=== PATIENT | male | born 1935 | race American Indian/Alaskan Native ===

== ENCOUNTER 2016-11-10 12:31 | Emergency (ER) | payer MEDICARE ==
--- NOTE | 2016-11-10 13:24 | Emergency Department Report ---
HPI - General Chief Complaint: Tube Replacement Time Seen by Provider: 11/10/16 13:04 - HPI HPI: 81-year-old Afro[place] male who presents to the emergency department by EMS from home with complaint of a PEG tube being pulled out accidentally. The patient has some home health care help who was trying to clean him up today and accidentally pulled out the tube. There was some bleeding at the PEG tube site that has stopped since and is covered with some gauze. Patient denies any significant abdominal discomfort. ED Past Medical Hx - Past Medical History Previous Medical History?: Yes Hx Hypertension: Yes Hx CVA: Yes (pt had stroke 20 years ago) Hx Diabetes: No Hx Liver Disease: (Abnormal LFTs) Hx Sickle Cell Disease: No Hx Arthritis: Yes Hx Tuberculosis: Yes Hx Dementia: Yes Hx HIV: No Additional medical history: GOUT. ALZHEIMERS? - Surgical History Past Surgical History?: Yes Hx Pacemaker: Yes - Social History Smoking Status: Never Smoker Substance Use Type: None - Medications Home Medications: Home Medications Medication Instructions Recorded Confirmed Last Taken Type Simvastatin 20 mg PO QHS 01/18/15 03/30/16 03/30/16 History Clopidogrel [Plavix] 75 mg PO QDAY tablet 11/30/15 03/30/16 03/30/16 Rx Metoprolol [Lopressor TAB] 50 mg PO DAILY #30 tablet 11/30/15 03/30/16 03/30/16 Rx Pantoprazole [Protonix TAB] 40 mg PO QDAY #30 tablet 11/30/15 03/30/16 03/30/16 Rx ED Review of Systems ROS: Stated complaint: FEEDING TUBE OUT Other details as noted in HPI Comment: All other systems reviewed and negative Constitutional: denies: chills, fever Eyes: denies: eye pain, eye discharge, vision change ENT: denies: ear pain, throat pain Respiratory: denies: cough, shortness of breath, wheezing Cardiovascular: denies: chest pain, palpitations Gastrointestinal: denies: nausea, vomiting Genitourinary: denies: urgency, dysuria Musculoskeletal: denies: back pain, joint swelling, arthralgia Skin: denies: rash, lesions Neurological: denies: headache, weakness, paresthesias Physical Exam - Physical Exam Vital Signs: Vital Signs 11/10/16 12:52 Temperature 97.9 F Pulse Rate 67 Respiratory 16 Rate Blood Pressure 138/69 [Right] O2 Sat by Pulse 99 Oximetry Physical Exam: GENERAL: The patient is well-developed well-nourished. HEENT: Normocephalic. Atraumatic. Extraocular motions are intact. Patient has moist mucous membranes. Pupils equal reactive to light bilaterally. NECK: Supple. Trachea is midline. CHEST/LUNGS: Clear to auscultation. There is no respiratory distress noted. HEART/CARDIOVASCULAR: Regular. There is no tachycardia. There is no gallop rub or murmur. ABDOMEN: Abdomen is soft. Nontender abdomen. There is a small wound from previous PEG tube site. It does not appear infected and there is no current bleeding. Patient has normal bowel sounds. There is no abdominal distention. SKIN: Skin is warm and dry. NEURO: The patient is awake, and cooperative. The patient has no focal neurologic deficits. MUSCULOSKELETAL: There is no tenderness or deformity. There is no limitation range of motion. There is no evidence of acute injury. ED Course Vital Signs 11/10/16 12:52 Temperature 97.9 F Pulse Rate 67 Respiratory 16 Rate Blood Pressure 138/69 [Right] O2 Sat by Pulse 99 Oximetry - Feeding Tube Replacement Reason for Replacement: pt. removed/pulled out Initial Tube Inserted: greater than 4 weeks Type of Tube: gastrostomy Use of Tube: medications and feeding Insertion Site Prior to Procedure: clean Tube Used for Reinsertion: GINA Dutch Tube Size (F): 20 Balloon Size (mls): 10 Verification of Placement: gastrograffin injection Tube Secured by: tape/dressing Patient Tolerated Procedure: well ED Medical Decision Making - Radiology Data Radiology results: image reviewed interpreted by me: X-ray G-tube study does not show any extravasation and there appears to be appropriate placement in the stomach. - Medical Decision Making 81-year-old male presents to the emergency department after his PEG tube was actually pulled out earlier today by home health. There is no significant bleeding, swelling or abnormalities seen to the PEG tube site. A another 20 Dutch GINA tube was used and there was easy insertion into the stomach. The bulb was filled up to about 10 mL. The patient had a G-tube study that does not show any extravasation and the contrast appears to be flowing into the stomach so it is in appropriate position. Vital signs stable. Patient will be transported back home. - Differential Diagnosis G-tube malfunction, ostomy narrowing, perforation Critical Care Time: No Critical care attestation.: If time is entered above; I have spent that time in minutes in the direct care of this critically ill patient, excluding procedure time. ED Disposition Clinical Impression: PEG tube malfunction Disposition: DISCHARGED TO HOME OR SELFCARE Is pt being admited?: No Condition: Stable Instructions: How to Use and Care for Your PEG Tube (ED) Additional Instructions: Please follow-up with a primary care doctor as needed. Return to the emergency department with any further malfunction of the PEG tube or any acute distress. Referrals: PRIMARY CARE, [Primary Care Provider] - 3-5 Days Time of Disposition: 14:24
--- NOTE | 2016-11-10 14:18 | XRay Report ---
G-TUBE STUDY History: G-tube replacement. Findings: R&D Lab Technician film of the abdomen and AP view of the abdomen following oral contrast through the PEG tube was obtained. The PEG tube terminates in the stomach. There is no evidence for extravasation or obstruction. Impression: Unremarkable PEG tube.
[2016-11-10 15:47] VITALS: BP 119/66
== END 2016-11-10 16:07 | disposition home or self-care (01) ==
LOC: ED 12:31
DX: K94.23 Gastrostomy malfunction (principal); I10 Essential (primary) hypertension; Z86.73 Personal history of transient ischemic attack (TIA), and cerebral infarction without residual deficits; M19.90 Unspecified osteoarthritis, unspecified site; F03.90 Unspecified dementia, unspecified severity, without behavioral disturbance, psychotic disturbance, mood disturbance, and anxiety; Z95.818 Presence of other cardiac implants and grafts
CPT/HCPCS: 74000; Q9963

== ENCOUNTER 2017-11-26 23:04 | Emergency (ER) | payer MEDICARE ==
--- NOTE | 2017-11-26 23:42 | Emergency Department Report ---
ED General Adult HPI - General Chief complaint: Tube Replacement Stated complaint: DISLODGED FEEDING TUBE Time Seen by Provider: 11/26/17 23:32 Source: patient, family, EMS (ems notes not available at time of chart dictation), RN notes reviewed, old records reviewed Mode of arrival: Stretcher Limitations: Physical Limitation, Other (patient is a poor historian. Patient has contractures.) - History of Present Illness Initial comments: This is an 82-year-old male who was previously unknown to this provider who is brought to the hospital by EMS and family for evaluation of accidentally dislodged feeding tube. Family indicates patient at baseline and they have no complaints. family specifically indicate that there is no fevers, chills, lethargy, cough, nausea or vomiting. The patient endorses no complaints. -: This afternoon Severity scale (0 -10): 0 Consistency: constant Improves with: none Worsens with: none Associated Symptoms: denies other symptoms - Related Data Home Medications Medication Instructions Recorded Confirmed Last Taken Simvastatin 20 mg PO QHS 01/18/15 11/26/17 03/30/16 oxyCODONE /ACETAMINOPHEN 5 - 325 mg PO Q6H PRN 11/10/16 11/26/17 Unknown Previous Rx's Medication Instructions Recorded Last Taken Type Clopidogrel [Plavix] 75 mg PO QDAY tablet 11/30/15 03/30/16 Rx Metoprolol [Lopressor TAB] 50 mg PO DAILY #30 tablet 11/30/15 03/30/16 Rx Pantoprazole [Protonix TAB] 40 mg PO QDAY #30 tablet 11/30/15 03/30/16 Rx Allergies Allergy/AdvReac Type Severity Reaction Status Date / Time No Known Allergies Allergy Verified 04/07/15 18:20 ED Review of Systems ROS: Stated complaint: DISLODGED FEEDING TUBE Other details as noted in HPI Comment: All other systems reviewed and negative Constitutional: denies: fever Eyes: denies: vision change Respiratory: denies: cough Cardiovascular: denies: chest pain Gastrointestinal: denies: abdominal pain Genitourinary: denies: dysuria Musculoskeletal: denies: arthralgia Neurological: denies: confusion ED Past Medical Hx - Past Medical History Hx Hypertension: Yes Hx CVA: Yes (pt had stroke 20 years ago) Hx Diabetes: No Hx Liver Disease: (Abnormal LFTs) Hx Sickle Cell Disease: No Hx Arthritis: Yes Hx Tuberculosis: Yes Hx Dementia: Yes Hx HIV: No Additional medical history: GOUT. ALZHEIMERS? - Surgical History Hx Pacemaker: Yes - Social History Smoking Status: Never Smoker Substance Use Type: None - Medications Home Medications: Home Medications Medication Instructions Recorded Confirmed Last Taken Type Simvastatin 20 mg PO QHS 01/18/15 11/26/17 03/30/16 History Clopidogrel [Plavix] 75 mg PO QDAY tablet 11/30/15 11/26/17 03/30/16 Rx Metoprolol [Lopressor TAB] 50 mg PO DAILY #30 tablet 11/30/15 11/26/17 03/30/16 Rx Pantoprazole [Protonix TAB] 40 mg PO QDAY #30 tablet 11/30/15 11/26/17 03/30/16 Rx oxyCODONE /ACETAMINOPHEN 5 - 325 mg PO Q6H PRN 11/10/16 11/26/17 Unknown History ED Physical Exam - General Limitations: Physical Limitation, Other General appearance: alert, in no apparent distress - Head Head exam: Present: atraumatic, normocephalic - Eye Eye exam: Present: normal appearance - ENT ENT exam: Present: mucous membranes moist - Neck Neck exam: Present: normal inspection - Respiratory Respiratory exam: Present: normal lung sounds bilaterally. Absent: respiratory distress - Cardiovascular Cardiovascular Exam: Present: normal rhythm, bradycardia, normal heart sounds. Absent: systolic murmur, diastolic murmur, rubs, gallop - GI/Abdominal GI/Abdominal exam: Present: soft, normal bowel sounds, other (there is a left lower quadrant ostomy noted, with no redness, pus, streaking or tenderness.). Absent: distended, tenderness, guarding, rebound, rigid, pulsatile mass - Rectal Rectal exam: Present: deferred - Extremities Exam Extremities exam: Present: normal inspection, other (bilateral upper and lower extremities are moving, lower extremities are contracted). Absent: calf tenderness - Back Exam Back exam: Present: normal inspection. Absent: paraspinal tenderness, vertebral tenderness - Neurological Exam Neurological exam: Present: alert, other (follow some commands. No facial droop. Sensation intact to light touch in the bilateral upper and lower extremities) - Psychiatric Psychiatric exam: Present: normal affect, normal mood - Skin Skin exam: Present: warm, dry, intact, normal color. Absent: rash ED Course Vital Signs 11/26/17 11/26/17 23:12 23:55 Temperature 99.0 F Pulse Rate 50 L Respiratory 15 16 Rate Blood Pressure 174/61 Blood Pressure 174/61 [Left] O2 Sat by Pulse 99 Oximetry - Reevaluation(s) Reevaluation #1: 11/27/17 01:01 Differential diagnosis, including but not limited to: Feeding tube replacement Assessment and plan: 82-year-old male status post G-tube placement by myself. He is afebrile with reassuring vital signs, and his family indicates that he is at his baseline. Post procedure x-ray demonstrated appropriate placement of the tube. Multiple incidental findings noted, however the clinical history and exam are otherwise unremarkable. Patient can follow-up in outpatient primary care doctor. Return precautions are reviewed, the tube is suitable to use for feedings and medication administration at this time. - Procedure Description Procedures done: A 20 Lao feeding tube was inserted into the left lower quadrant ostomy with 1 attempt and no difficulty. The balloon was inflated with 10 mL of sterile saline. Post procedure x-ray demonstrated appropriate contrast placement. ED Medical Decision Making - Lab Data Vital Signs 11/26/17 11/26/17 23:12 23:55 Temperature 99.0 F Pulse Rate 50 L Respiratory 15 16 Rate Blood Pressure 174/61 Blood Pressure 174/61 [Left] O2 Sat by Pulse 99 Oximetry - Radiology Data Radiology results: report reviewed, image reviewed X-ray of gastrostomy tube demonstrates appropriate placement of tube with contrast in the appropriate bowel lumen. Multiple other incidental findings noted. Critical care attestation.: If time is entered above; I have spent that time in minutes in the direct care of this critically ill patient, excluding procedure time. ED Disposition Clinical Impression: Encounter for feeding tube placement Disposition: DC-01 TO HOME OR SELFCARE Is pt being admited?: No Does the pt Need Aspirin: No Condition: Stable Instructions: Tube Feeding (ED) Additional Instructions: Tube may be used for feeds and for medications. Follow-up with primary care doctor or route delivery manager within the next month. Return to the ER right away with fevers, chills, lethargy, irritability, projectile vomiting, change in mental status, confusion, inability to tolerate liquid feeds. Referrals: PRIMARY CARE, [Primary Care Provider] - 3-5 Days MAXI WALLACE MD [Staff Physician] - 3-5 Days TREVIZO,RAFIQ A, MD [Staff Physician] - 3-5 Days
--- NOTE | 2017-11-27 00:29 | XRay Report ---
FINAL REPORT PROCEDURE: XR G-TUBE STUDY TECHNIQUE: AP supine portable radiographs of the abdomen were obtained at 11/27/2017 03:59 (T). Images pre and post Gastrografin via G-tube. HISTORY: G-tube replacement. COMPARISON: Radiographs dated 03/30/2016. FINDINGS: Bowel gas pattern: Diffusely air-filled bowel, predominantly colon. Moderate stool throughout the colon. Masses or calcifications: Pelvic phleboliths. Bony structures: Osteopenia. Degenerative changes of the spine. Mild narrowing of the bilateral hip joints. Other: Incompletely visualized pacer/ICD. G-tube in place. After the administration of contrast via G-tube contrast seen in the stomach and proximal small bowel IMPRESSION: Limited evaluation, contrast seen in the stomach and proximal small bowel when administered via G-tube without obvious extravasation, recommend confirmation under real-time imaging under fluoroscopy if there is continued clinical concern. Diffusely air-filled bowel. Moderate stool throughout the colon. Consider ileus and/or constipation.
[2017-11-27 01:13] VITALS: BP 120/66
== END 2017-11-27 02:25 | disposition home or self-care (01) ==
LOC: ED 23:04
DX: K94.29 Other complications of gastrostomy (principal); I10 Essential (primary) hypertension; F03.90 Unspecified dementia, unspecified severity, without behavioral disturbance, psychotic disturbance, mood disturbance, and anxiety; Z86.73 Personal history of transient ischemic attack (TIA), and cerebral infarction without residual deficits
CPT/HCPCS: 43760; 74018; 99283; Q9963

== ENCOUNTER 2018-04-05 22:51 | Emergency (ER) | payer MEDICARE ==
[2018-04-05 23:28] VITALS: BP 103/50
--- NOTE | 2018-04-05 23:48 | Emergency Department Report ---
ED General Adult HPI - General Chief complaint: Tube Replacement Stated complaint: FEEDING TUBE FELL OUT Time Seen by Provider: 04/05/18 23:20 Source: patient Mode of arrival: Stretcher Limitations: Altered Mental Status, Physical Limitation - History of Present Illness Initial comments: 82-year-old male brought to ER for replacement of PEG tube. states she was about to feed the patient and PEG tube fell out less than an hour ago. -: minutes(s) (45) Location: abdomen Severity scale (0 -10): 1 Improves with: none Worsens with: none Associated Symptoms: denies other symptoms - Related Data Home Medications Medication Instructions Recorded Confirmed Last Taken Simvastatin 20 mg PO QHS 01/18/15 11/26/17 03/30/16 oxyCODONE /ACETAMINOPHEN 5 - 325 mg PO Q6H PRN 11/10/16 11/26/17 Unknown Previous Rx's Medication Instructions Recorded Last Taken Type Clopidogrel [Plavix] 75 mg PO QDAY tablet 11/30/15 03/30/16 Rx Metoprolol [Lopressor TAB] 50 mg PO DAILY #30 tablet 11/30/15 03/30/16 Rx Pantoprazole [Protonix TAB] 40 mg PO QDAY #30 tablet 11/30/15 03/30/16 Rx Allergies Allergy/AdvReac Type Severity Reaction Status Date / Time No Known Allergies Allergy Verified 04/07/15 18:20 ED Review of Systems ROS: Stated complaint: FEEDING TUBE FELL OUT Other details as noted in HPI Comment: All other systems reviewed and negative Gastrointestinal: as per HPI ED Past Medical Hx - Past Medical History Hx Hypertension: Yes Hx CVA: Yes (pt had stroke 20 years ago) Hx Diabetes: No Hx Liver Disease: (Abnormal LFTs) Hx Sickle Cell Disease: No Hx Arthritis: Yes Hx Tuberculosis: Yes Hx Dementia: Yes Hx HIV: No Additional medical history: GOUT. ALZHEIMERS? - Surgical History Hx Pacemaker: Yes - Social History Smoking Status: Never Smoker Substance Use Type: None - Medications Home Medications: Home Medications Medication Instructions Recorded Confirmed Last Taken Type Simvastatin 20 mg PO QHS 01/18/15 11/26/17 03/30/16 History Clopidogrel [Plavix] 75 mg PO QDAY tablet 11/30/15 11/26/17 03/30/16 Rx Metoprolol [Lopressor TAB] 50 mg PO DAILY #30 tablet 11/30/15 11/26/1703/30/16 Rx Pantoprazole [Protonix TAB] 40 mg PO QDAY #30 tablet 11/30/15 11/26/17 03/30/16 Rx oxyCODONE /ACETAMINOPHEN 5 - 325 mg PO Q6H PRN 11/10/16 11/26/17 Unknown History ED Physical Exam - General Limitations: Altered Mental Status, Physical Limitation General appearance: alert, in no apparent distress - Head Head exam: Present: atraumatic, normocephalic - Neck Neck exam: Present: normal inspection - Respiratory Respiratory exam: Present: normal lung sounds bilaterally. Absent: respiratory distress - Cardiovascular Cardiovascular Exam: Present: regular rate, bradycardia - GI/Abdominal GI/Abdominal exam: Present: soft, other (PEG tube site appears clean, no erythema or purulence present). Absent: distended, tenderness - Extremities Exam Extremities exam: Present: other (lower extremitis contracted) - Neurological Exam Neurological exam: Present: alert, other (nonverbal) - Psychiatric Psychiatric exam: Present: normal affect, normal mood - Skin Skin exam: Present: warm, dry, intact ED Course Vital Signs 04/05/18 04/06/18 23:19 01:24 Temperature 98.7 F 98.7 F Pulse Rate 51 L 51 L Respiratory 18 Rate Blood Pressure 103/50 O2 Sat by Pulse 100 100 Oximetry - Feeding Tube Replacement Initial Tube Inserted: greater than 4 weeks Type of Tube: gastrostomy Use of Tube: medications and feeding Insertion Site Prior to Procedure: clean Tube Used for Reinsertion: other (PEG) Ecuadorean Tube Size (F): 20 Balloon Size (mls): 10 Verification of Placement: KUB, gastrograffin injection Tube Secured by: G-tube attachment device Patient Tolerated Procedure: well ED Medical Decision Making - Medical Decision Making 82-year-old male here with PEG tube dislodgment. PEG tube was replaced. KUB with Gastrografin shows correct placement of tube. Will d/c home. - Differential Diagnosis PEG tube replacement Critical care attestation.: If time is entered above; I have spent that time in minutes in the direct care of this critically ill patient, excluding procedure time. ED Disposition Clinical Impression: PEG (percutaneous endoscopic gastrostomy) adjustment/replacement/removal Disposition: TO HOME OR SELFCARE Is pt being admited?: No Condition: Stable Instructions: How to Use and Care for Your PEG Tube (ED) Referrals: PRIMARY CARE, [Primary Care Provider] - 3-5 Days Time of Disposition: 00:24
--- NOTE | 2018-04-06 00:19 | XRay Report ---
FINAL REPORT EXAM: XR G-TUBE STUDY HISTORY: PEG tube replacement TECHNIQUE: Two supine views of the abdomen were obtained, the 2nd following the injection of oral contrast through the gastrostomy tube. FINDINGS: There is normal opacification of the stomach. There is no evidence of extravasation of contrast. The bowel gas pattern otherwise reveals a large amount retained feces in the colon. IMPRESSION: Gastrostomy tube in proper position. No evidence of extravasation of contrast.
== END 2018-04-06 01:33 | disposition home or self-care (01) ==
LOC: ED 22:51
DX: K94.23 Gastrostomy malfunction (principal)
CPT/HCPCS: 43760; 74018; 99283; Q9967

== ENCOUNTER 2018-04-07 20:22 | Emergency (ER) | payer MEDICARE ==
--- NOTE | 2018-04-07 21:02 | Emergency Department Report ---
ED General Adult HPI - General Chief complaint: Tube Replacement Stated complaint: REPLACE FEEDING TUBE Time Seen by Provider: 04/07/18 20:47 Source: family, EMS (ems notes not available at time of chart dictation), RN notes reviewed, old records reviewed Mode of arrival: Stretcher Limitations: Altered Mental Status, Physical Limitation - History of Present Illness Initial comments: This is an 82-year-old gentleman who I have evaluated in the past. He is accompanied by his family member. She has brought the patient to the emergency room for a feeding tube replacement. She reports the patient accidentally pulled out his feeding tube today. No other complaints. -: This morning Consistency: constant Improves with: none Worsens with: none Associated Symptoms: denies: cough, fever/chills, loss of appetite, nausea/ vomiting, seizure, shortness of breath, syncope, weakness - Related Data Home Medications Medication Instructions Recorded Confirmed Last Taken Simvastatin 20 mg PO QHS 01/18/15 11/26/17 03/30/16 oxyCODONE /ACETAMINOPHEN 5 - 325 mg PO Q6H PRN 11/10/16 11/26/17 Unknown Previous Rx's Medication Instructions Recorded Last Taken Type Clopidogrel [Plavix] 75 mg PO QDAY tablet 11/30/15 03/30/16 Rx Metoprolol [Lopressor TAB] 50 mg PO DAILY #30 tablet 11/30/15 03/30/16 Rx Pantoprazole [Protonix TAB] 40 mg PO QDAY #30 tablet 11/30/15 03/30/16 Rx Allergies Allergy/AdvReac Type Severity Reaction Status Date / Time No Known Allergies Allergy Verified 04/07/15 18:20 ED Review of Systems ROS: Stated complaint: REPLACE FEEDING TUBE Other details as noted in HPI Constitutional: denies: fever Eyes: denies: eye discharge ENT: denies: epistaxis Respiratory: denies: cough Cardiovascular: denies: syncope Gastrointestinal: denies: vomiting Genitourinary: denies: frequency Skin: denies: rash ED Past Medical Hx - Past Medical History Hx Hypertension: Yes Hx CVA: Yes (pt had stroke 20 years ago) Hx Diabetes: No Hx Liver Disease: (Abnormal LFTs) Hx Sickle Cell Disease: No Hx Arthritis: Yes Hx Tuberculosis: Yes Hx Dementia: Yes Hx HIV: No Additional medical history: GOUT. ALZHEIMERS? - Surgical History Hx Pacemaker: Yes - Social History Smoking Status: Never Smoker Substance Use Type: None - Medications Home Medications: Home Medications Medication Instructions Recorded Confirmed Last Taken Type Simvastatin 20 mg PO QHS 01/18/15 11/26/17 03/30/16 History Clopidogrel [Plavix] 75 mg PO QDAY tablet 11/30/15 11/26/17 03/30/16 Rx Metoprolol [Lopressor TAB] 50 mg PO DAILY #30 tablet 11/30/15 11/26/17 03/30/16 Rx Pantoprazole [Protonix TAB] 40 mg PO QDAY #30 tablet 11/30/15 11/26/17 03/30/16 Rx oxyCODONE /ACETAMINOPHEN 5 - 325 mg PO Q6H PRN 11/10/16 11/26/17 Unknown History ED Physical Exam - General Limitations: Altered Mental Status, Physical Limitation General appearance: in no apparent distress - Eye Eye exam: Present: normal appearance - ENT ENT exam: Present: normal orophraynx, other - Neck Neck exam: Present: normal inspection, full ROM. Absent: tenderness, meningismus - Respiratory Respiratory exam: Present: normal lung sounds bilaterally. Absent: respiratory distress, wheezes, rales, rhonchi, stridor, chest wall tenderness, accessory muscle use, decreased breath sounds - Cardiovascular Cardiovascular Exam: Present: normal rhythm, bradycardia, normal heart sounds - GI/Abdominal GI/Abdominal exam: Present: soft, other (There is left lower quadrant ostomy noted, with no redness, pus or streaking). Absent: distended, tenderness, guarding, rebound, rigid, pulsatile mass - Extremities Exam Extremities exam: Present: normal inspection, other (contractures noted in the bilateral lower extremities.) - Back Exam Back exam: Present: normal inspection. Absent: tenderness, CVA tenderness (R), paraspinal tenderness, vertebral tenderness - Neurological Exam Neurological exam: Present: alert (patient is awake. He follows some commands. Chronic weakness in the lower extremities.) - Psychiatric Psychiatric exam: Present: normal affect ED Course Vital Signs 04/07/18 04/07/18 04/07/18 20:37 20:42 20:46 Temperature 98.4 F Pulse Rate 53 L 57 L Respiratory 16 14 Rate Blood Pressure 143/58 122/49 O2 Sat by Pulse 100 99 99 Oximetry 09/19/18 09/19/18 09/19/18 21:00 21:16 21:30 Temperature Pulse Rate 60 55 L 47 L Respiratory 13 13 16 Rate Blood Pressure 122/49 125/81 127/43 O2 Sat by Pulse 93 98 Oximetry 04/07/18 21:46 Temperature Pulse Rate 47 L Respiratory 18 Rate Blood Pressure 123/48 O2 Sat by Pulse 99 Oximetry - Reevaluation(s) Reevaluation #1: 04/07/18 22:48 Postprocedure x-ray shows proper placement of the G-tube. Patient in no distress. Patient will be discharged. - Procedure Description Procedures done: Left lower quadrant is cleansed in typical aseptic technique. A 20 Filip[place] feeding tube was attempted to be placed, but it would not pass. A 16 Filip[place] feeding tube was then placed, successfully, and balloon was instilled with 5 mL of sterile saline. Patient tolerated procedure well. ED Medical Decision Making - Medical Decision Making Vital Signs 04/07/18 20:42 Temperature 98.4 F Pulse Rate 53 L Respiratory 16 Rate Blood Pressure 143/58 O2 Sat by Pulse 99 Oximetry Differential diagnosis, including but not limited to feeding tube replacement Assessment and plan: 82-year-old gentleman status post feeding tube replacement with a 16 Filip[place] feeding tube. Patient can follow up with outpatient GI to have the tube up dilated. Critical care attestation.: If time is entered above; I have spent that time in minutes in the direct care of this critically ill patient, excluding procedure time. ED Disposition Clinical Impression: PEG (percutaneous endoscopic gastrostomy) adjustment/replacement/removal Disposition: DC-01 TO HOME OR SELFCARE Is pt being admited?: No Does the pt Need Aspirin: No Condition: Good Additional Instructions: Continue current outpatient medications. Feeding tube that was placed today is slightly smaller than recently placed feeding tubes. Patient should follow up with outpatient gastroenterology within the next 2 weeks for evaluation to have the tube up dilated. Please return to the ER right away with fevers, chills, lethargy, irritability, projectile vomiting, change of mental status, confusion , inability to tolerate liquid feeds. Referrals: [facility] [Provider Group] - 3-5 Days
--- NOTE | 2018-04-07 22:41 | XRay Report ---
FINAL REPORT PROCEDURE: XR G-TUBE STUDY TECHNIQUE: AP supine portable radiograph of the abdomen was obtained at 04/07/2018 22:05 (EST) . HISTORY: s/p replacement COMPARISON: No prior studies are available for comparison. FINDINGS: There is a percutaneous gastrostomy tube. Contrast is injected. The tube is intact and in proper position. There is no leakage. There is barium in the bowel. There is no bowel obstruction. There is no free air. IMPRESSION: NG tube is intact and in proper position.
[2018-04-08 06:04] VITALS: BP 143/57
== END 2018-04-08 | disposition home or self-care (01) ==
LOC: ED 20:22
DX: K94.29 Other complications of gastrostomy (principal); I10 Essential (primary) hypertension; Z86.73 Personal history of transient ischemic attack (TIA), and cerebral infarction without residual deficits; M19.90 Unspecified osteoarthritis, unspecified site; F03.90 Unspecified dementia, unspecified severity, without behavioral disturbance, psychotic disturbance, mood disturbance, and anxiety; A15.9 Respiratory tuberculosis unspecified; M10.9 Gout, unspecified; Z95.818 Presence of other cardiac implants and grafts
CPT/HCPCS: 43760; 74018; 99283; Q9967

== ENCOUNTER 2018-09-13 13:06 | Emergency (ER) | payer MEDICARE ==
--- NOTE | 2018-09-13 13:42 | Emergency Department Report ---
ED General Adult HPI - General Chief complaint: Tube Replacement Stated complaint: FEEDING TUBE REPLACEMENT Time Seen by Provider: 09/13/18 13:15 Source: family, EMS Mode of arrival: Stretcher Limitations: No Limitations - History of Present Illness Initial comments: Mr. Glasgow is an 82 yo who was brought by daughter for feeding tube replacement. She has the tube changed every 4-6 months. No other concerns. Mr. Glasgow is in hospice care. Due to dementia, patient is unable to give a history. No other pain. No other concern. Severity scale (0 -10): 0 - Related Data Home Medications Medication Instructions Recorded Confirmed Last Taken Simvastatin 20 mg PO QHS 01/18/15 11/26/17 03/30/16 oxyCODONE /ACETAMINOPHEN 5 - 325 mg PO Q6H PRN 11/10/16 11/26/17 Unknown Previous Rx's Medication Instructions Recorded Last Taken Type Clopidogrel [Plavix] 75 mg PO QDAY tablet 11/30/15 03/30/16 Rx Metoprolol [Lopressor TAB] 50 mg PO DAILY #30 tablet 11/30/15 03/30/16 Rx Pantoprazole [Protonix TAB] 40 mg PO QDAY #30 tablet 11/30/15 03/30/16 Rx Allergies Allergy/AdvReac Type Severity Reaction Status Date / Time No Known Allergies Allergy Verified 04/07/15 18:20 ED Review of Systems ROS: Stated complaint: FEEDING TUBE REPLACEMENT Other details as noted in HPI Comment: Unobtainable due to pts medical conditions ED Past Medical Hx - Past Medical History Previous Medical History?: Yes Hx Hypertension: Yes Hx CVA: Yes (pt had stroke 20 years ago) Hx Diabetes: No Hx Liver Disease: (Abnormal LFTs) Hx Sickle Cell Disease: No Hx Arthritis: Yes Hx Tuberculosis: Yes Hx Dementia: Yes Hx HIV: No Additional medical history: GOUT. ALZHEIMERS/DEMENTIA - Surgical History Hx Pacemaker: Yes Additional Surgical History: G Tube - Social History Smoking Status: Never Smoker Substance Use Type: None - Medications Home Medications: Home Medications Medication Instructions Recorded Confirmed Last Taken Type Simvastatin 20 mg PO QHS 01/18/15 11/26/17 03/30/16 History Clopidogrel [Plavix] 75 mg PO QDAY tablet 11/30/15 11/26/17 03/30/16 Rx Metoprolol [Lopressor TAB] 50 mg PO DAILY #30 tablet 11/30/15 11/26/17 03/30/16 Rx Pantoprazole [Protonix TAB] 40 mg PO QDAY #30 tablet 11/30/15 11/26/17 03/30/16 Rx oxyCODONE /ACETAMINOPHEN 5 - 325 mg PO Q6H PRN 11/10/16 11/26/17 Unknown History ED Physical Exam - General Limitations: No Limitations General appearance: alert, in no apparent distress, cachectic, other (contracted extremities, appears frail) - Head Head exam: Present: atraumatic, normocephalic - ENT ENT exam: Present: mucous membranes moist - Neck Neck exam: Present: normal inspection - Respiratory Respiratory exam: Absent: respiratory distress - GI/Abdominal GI/Abdominal exam: Present: soft, other (16 Fr gastric tube in place with clean bandage). Absent: distended, tenderness, guarding, rebound - Psychiatric Psychiatric exam: Present: flat affect - Skin Skin exam: Present: warm, dry, intact, normal color ED Course Vital Signs 09/13/18 13:08 Temperature 98.3 F Pulse Rate 60 Respiratory 16 Rate Blood Pressure 110/42 O2 Sat by Pulse 99 Oximetry - Procedure Description Procedures done: G tube replacement. I deflated the balloon of existing tube by removing 3 ml of fluid with syringe. I was able to remove tube. Using sterile technique, I was able to easily insert 16 Fr gastric tube. I inflated ballon with normal saline. G tube XR study showed tube to be in appropriate position ED Medical Decision Making - Radiology Data Radiology results: image reviewed interpreted by me: G tube in appropriate position Critical care attestation.: If time is entered above; I have spent that time in minutes in the direct care of this critically ill patient, excluding procedure time. ED Disposition Clinical Impression: Encounter for feeding tube placement Disposition: DC-01 TO HOME OR SELFCARE Is pt being admited?: No Does the pt Need Aspirin: No Condition: Stable Instructions: Tube Feeding (ED)
--- NOTE | 2018-09-13 16:58 | XRay Report ---
FINAL REPORT EXAM: XR G-TUBE STUDY HISTORY: feeding tube replacement TECHNIQUE: Frontal views of the abdomen and pelvis before and after injection of GI contrast through the percutaneous gastrostomy tube. Comparison: X-ray abdomen dated April 07, 2018 FINDINGS: A percutaneous gastrostomy tube is demonstrated with the tip projected in the region of the stomach. GI contrast is demonstrated in the stomach and duodenum. There is no evidence of extravasation of GI contrast. The bowel gas pattern is nonobstructive. There is no definite evidence of pneumoperitoneum IMPRESSION: 1. Percutaneous gastrostomy tube projected to be in satisfactory position with GI contrast demonstrat ed in the stomach and duodenum following injection of contrast into the gastrostomy tube.
[2018-09-13 17:21] VITALS: BP 125/68
== END 2018-09-13 17:20 | disposition home or self-care (01) ==
LOC: ED 13:06
DX: M10.9 Gout, unspecified (principal); I10 Essential (primary) hypertension; G30.9 Alzheimer's disease, unspecified; F02.80 Dementia in other diseases classified elsewhere, unspecified severity, without behavioral disturbance, psychotic disturbance, mood disturbance, and anxiety; Z86.73 Personal history of transient ischemic attack (TIA), and cerebral infarction without residual deficits
CPT/HCPCS: 43762; 74018; 99283; Q9967

== ENCOUNTER 2018-12-22 16:22 | Emergency (ER) | payer MEDICARE ==
--- NOTE | 2018-12-22 17:04 | Emergency Department Report ---
ED General Adult HPI - General Stated complaint: G TUBE REPLACEMENT Time Seen by Provider: 12/22/18 16:45 Source: family, EMS Mode of arrival: Stretcher Limitations: Altered Mental Status, Physical Limitation - History of Present Illness Initial comments: Patient is an 83-year-old male that presents emergency room for replacement of his G-tube. Patient's family is at bedside for history. Patient is currently on hospice for advanced dementia. Family states that the patient comes to the emergency room every 4-6 months to have his G-tube changed. Family states that the G-tube is leaking from the side. Family states the patient has not had any signs of pain or discomfort. Family denies fever and chills. He denies changes in bowel movements. -: Sudden Consistency: constant Improves with: none Worsens with: none Associated Symptoms: denies other symptoms. denies: cough, diaphoresis, fever/chills, nausea/vomiting, rash, seizure, shortness of breath, syncope - Related Data Home Medications Medication Instructions Recorded Confirmed Last Taken Simvastatin 20 mg PO QHS 01/18/15 11/26/17 03/30/16 oxyCODONE /ACETAMINOPHEN 5 - 325 mg PO Q6H PRN 11/10/16 11/26/17 Unknown Previous Rx's Medication Instructions Recorded Last Taken Type Clopidogrel [Plavix] 75 mg PO QDAY tablet 11/30/15 03/30/16 Rx Metoprolol [Lopressor TAB] 50 mg PO DAILY #30 tablet 11/30/15 03/30/16 Rx Pantoprazole [Protonix TAB] 40 mg PO QDAY #30 tablet 11/30/15 03/30/16 Rx Allergies Allergy/AdvReac Type Severity Reaction Status Date / Time No Known Allergies Allergy Verified 04/07/15 18:20 ED Review of Systems ROS: Stated complaint: G TUBE REPLACEMENT Other details as noted in HPI Comment: Unobtainable due to pts medical conditions ED Past Medical Hx - Past Medical History Previous Medical History?: Yes Hx Hypertension: Yes Hx CVA: Yes (pt had stroke 20 years ago) Hx Diabetes: No Hx Liver Disease: (Abnormal LFTs) Hx Sickle Cell Disease: No Hx Arthritis: Yes Hx Tuberculosis: Yes Hx Dementia: Yes Hx HIV: No Additional medical history: GOUT. ALZHEIMERS? - Surgical History Past Surgical History?: Yes Hx Pacemaker: Yes Additional Surgical History: G Tube - Family History Family history: no significant - Social History Smoking Status: Never Smoker Substance Use Type: None - Medications Home Medications: Home Medications Medication Instructions Recorded Confirmed Last Taken Type Simvastatin 20 mg PO QHS 01/18/15 11/26/17 03/30/16 History Clopidogrel [Plavix] 75 mg PO QDAY tablet 11/30/15 11/26/17 03/30/16 Rx Metoprolol [Lopressor TAB] 50 mg PO DAILY #30 tablet 11/30/15 11/26/17 03/30/16 Rx Pantoprazole [Protonix TAB] 40 mg PO QDAY #30 tablet 11/30/15 11/26/17 03/30/16 Rx oxyCODONE /ACETAMINOPHEN 5 - 325 mg PO Q6H PRN 11/10/16 11/26/17 Unknown History ED Physical Exam - General Limitations: Altered Mental Status, Physical Limitation General appearance: alert, in no apparent distress - Head Head exam: Present: atraumatic, normocephalic - Eye Eye exam: Present: normal appearance, PERRL Pupils: Present: normal accommodation - ENT ENT exam: Present: mucous membranes moist - Neck Neck exam: Present: normal inspection. Absent: tenderness - Respiratory Respiratory exam: Present: normal lung sounds bilaterally. Absent: respiratory distress, wheezes, rales - Cardiovascular Cardiovascular Exam: Present: regular rate, normal rhythm. Absent: systolic murmur, diastolic murmur, rubs, gallop - GI/Abdominal GI/Abdominal exam: Present: soft, normal bowel sounds, other (G-tube noted. Drainage on G-tube sponge noted.). Absent: distended, tenderness, guarding - Rectal Rectal exam: Present: deferred - Extremities Exam Extremities exam: Present: normal inspection - Back Exam Back exam: Present: normal inspection - Neurological Exam Neurological exam: Present: alert, altered - Skin Skin exam: Present: warm, dry, intact (except for PEG site), normal color. Absent: rash ED Course Vital Signs 12/22/18 12/22/18 12/22/18 16:30 17:00 18:46 Temperature 98.8 F Pulse Rate 82 65 Respiratory 18 18 18 Rate Blood Pressure 115/61 Blood Pressure 158/77 [Right] O2 Sat by Pulse 100 100 Oximetry 12/22/18 12/22/18 19:40 20:53 Temperature 98 F 98 F Pulse Rate 66 72 Respiratory 16 16 Rate Blood Pressure Blood Pressure 166/64 144/66 [Right] O2 Sat by Pulse 99 99 Oximetry - Reevaluation(s) Reevaluation #1: It appears the patient has come to the emergency room multiple times for G-tube replacement. Patient will have his G-tube changed here and we will discharge patient home. 12/22/18 17:02 Reevaluation #2: G-tube placed without difficulty. See procedure note. G-tube series will be done 12/22/18 18:02 Reevaluation #3: Discussed all results with family. Patient will be discharged home. Patient is able to discharge.. Family agrees to plan of care. Patient will be transported back via EMS to his house. 12/22/18 20:29 - Procedure Description Procedures done: G tube replacement. I deflated the balloon of existing tube by removing 3 ml of fluid with syringe. I was able to remove tube. Using sterile technique, I was able to easily insert 16 Fr gastric tube. I inflated ballon with normal saline. G tube XR study showed tube to be in appropriate position ED Medical Decision Making - Radiology Data Radiology results: report reviewed PROCEDURE: XR G-TUBE STUDY TECHNIQUE: 2 supine views of the abdomen obtained before and after administration of contrast via gastrostomy tube HISTORY: confirm g tube COMPARISONS: Prior examination from March 2018. FINDINGS: There is a nonspecific bowel gas pattern. The gastrostomy tube is in the stomach in the area of the gastric body. Administer contrast delineates the nondilated stomach and extends into the proximal duodenum. No extravasation of contrast. IMPRESSION: Gastrostomy tube in the stomach.. - Medical Decision Making Patient is 83-year-old male presents emergency room for a change in his feeding tube. A 16 Citizen [place] feeding tube was removed and another 16 [place] replaced. Gastric study done and shows that the feeding tube is in place. X-ray report reviewed. Patient will be discharged home. Patient is stable for discharge. Patient will remain on hospice and follow-up with his hospice team - Differential Diagnosis gastric tube malfunctioning. Critical care attestation.: If time is entered above; I have spent that time in minutes in the direct care of this critically ill patient, excluding procedure time. ED Disposition Clinical Impression: PEG tube malfunction, Dementia in Alzheimer's disease Disposition: - TO HOME OR SELFCARE Is pt being admited?: No Does the pt Need Aspirin: No Condition: Stable Instructions: Percutaneous Endoscopic Gastrostomy Insertion (GEN), How to Use and Care for Your PEG Tube (ED) Additional Instructions: Patient to follow-up with primary care in 2-3 days. Patient to take Tylenol or ibuprofen when necessary for pain. Patient to return to ER if condition worsens. Patient to take meds as directed. Patient to increase water. Patient to rest. Patient to continue all meds. Referrals: LUIS MIGUEL GRANT MD [Primary Care Provider] - 2-3 Days Time of Disposition: 20:31
--- NOTE | 2018-12-22 19:49 | XRay Report ---
PROCEDURE: XR G-TUBE STUDY TECHNIQUE: 2 supine views of the abdomen obtained before and after administration of contrast via ga strostomy tube HISTORY: confirm g tube COMPARISONS: Prior examination from March 2018. FINDINGS: There is a nonspecific bowel gas pattern. The gastrostomy tube is in the stomach in the area of the gastric body. Administer contrast delineates the nondilated stomach and extends into the proximal duodenum. No extravasation of contrast. IMPRESSION: Gastrostomy tube in the stomach.. This document is electronically signed by Julian Mcrae MD., December 22 2018 07:47:45 PM ET
[2018-12-22 20:54] VITALS: BP 144/66
== END 2018-12-22 22:30 | disposition home or self-care (01) ==
LOC: ED 16:22
DX: Z43.1 Encounter for attention to gastrostomy (principal); I10 Essential (primary) hypertension; M19.90 Unspecified osteoarthritis, unspecified site; Z86.73 Personal history of transient ischemic attack (TIA), and cerebral infarction without residual deficits; Z95.0 Presence of cardiac pacemaker; Z79.899 Other long term (current) drug therapy
CPT/HCPCS: 43762; 74018; 99283; Q9963

== ENCOUNTER 2019-05-12 02:32 | Emergency (ER) | payer MEDICARE ==
--- NOTE | 2019-05-12 02:56 | Emergency Department Report ---
HPI - General Time Seen by Provider: 05/12/19 02:45 - HPI HPI: Room 3 The patient is an 83-year-old male presented with a chief complaint of dislodged G-tube. The patient's rn diabetes states she checked on the patient tonight at midnight and noticed that his feeding tube come out She presents with a 16 Urdu feeding tube in a Ziploc bag. History of Alzheimer's and is unable to provide a history ED Past Medical Hx - Past Medical History Hx Hypertension: Yes Hx CVA: Yes (pt had stroke 20 years ago) Hx Liver Disease: (Abnormal LFTs) Hx Arthritis: Yes Hx Tuberculosis: Yes Hx Dementia: Yes Additional medical history: GOUT. ALZHEIMERS? - Surgical History Hx Pacemaker: Yes Additional Surgical History: G Tube - Family History Family history: no significant - Social History Smoking Status: Never Smoker Substance Use Type: None - Medications Home Medications: Home Medications Medication Instructions Recorded Confirmed Last Taken Type Simvastatin 20 mg PO QHS 01/18/15 11/26/17 03/30/16 History Clopidogrel [Plavix] 75 mg PO QDAY tablet 11/30/15 11/26/17 03/30/16 Rx Metoprolol [Lopressor TAB] 50 mg PO DAILY #30 tablet 11/30/15 11/26/17 03/30/16 Rx Pantoprazole [Protonix TAB] 40 mg PO QDAY #30 tablet 11/30/15 11/26/17 03/30/16 Rx oxyCODONE /ACETAMINOPHEN 5 - 325 mg PO Q6H PRN 11/10/16 11/26/17 Unknown History ED Review of Systems ROS: Stated complaint: FEEDING TUBE CAME OUT Other details as noted in HPI Comment: Unobtainable due to pts medical conditions Physical Exam - Physical Exam Physical Exam: GENERAL: The patient is well-developed well-nourished male lying on stretcher not appearing to be in acute distress. [] HEENT: Normocephalic. Atraumatic. Extraocular motions are intact. Patient has moist mucous membranes. NECK: Supple. Trachea midline CHEST/LUNGS: There is no respiratory distress noted. ABDOMEN: Abdomen is soft, nontender. Patient has normal bowel sounds. There is no abdominal distention. SKIN: There is no rash. There is no edema. There is no diaphoresis. NEURO: The patient is awake and alert MUSCULOSKELETAL: There is no evidence of acute injury. ED Medical Decision Making - Radiology Data Radiology results: report reviewed (G-tube study x-ray), image reviewed (G-tube study x-ray) interpreted by me: G-tube study [id number] seen within the lumen of the stomach [facility] [address] [place] [address] XRay Report Signed Patient: CLARENCE TEJEDA MR#: [id number] : 1935 Acct:[id number] Age/Sex: 83 / M ADM Date: 05/12/19 Loc: ED Attending Dr: Ordering Physician: MOJGAN SALVADOR MD Date of Service: 05/12/19 Procedure(s): XR g-tube study Accession Number(s): [id number] cc: MOJGAN SALVADOR MD Fluoro Time In Minutes: 0.0 Abdomen 3 views INDICATION: Abdominal pain IMPRESSION: Injected Gas trografin is seen within the upper stomach. Signer Name: Darrius Cunningham MD Signed: 05/12/2019 4:09 AM Workstation Name: [id number] Transcribed By: BC Dictated By: Darrius Cunningham MD Electronically Authenticated By: Darrius Cunningham MD Signed Date/Time: 05/12/19408 DD/ 8 TD/TT: - Differential Diagnosis feeding tube dislodgment Critical care attestation.: If time is entered above; I have spent that time in minutes in the direct care of this critically ill patient, excluding procedure time. ED Disposition Clinical Impression: Encounter for care related to feeding tube Disposition: DC-01 TO HOME OR SELFCARE Is pt being admited?: No Does the pt Need Aspirin: No Condition: Stable Additional Instructions: Return to the emergency department should you develop worsening symptoms, inability to tolerate food or liquids, high fever or any other concerns Time of Disposition: 04:17
--- NOTE | 2019-05-12 04:13 | XRay Report ---
Abdomen 3 views INDICATION: Abdominal pain IMPRESSION: Injected Gastrografin is seen within the upper stomach. Signer Name: Darrius Cunningham MD Signed: 05/12/2019 4:09 AM Workstation Name: [id number]
[2019-05-12 06:24] VITALS: BP 118/50
== END 2019-05-12 08:21 | disposition home or self-care (01) ==
LOC: ED 02:32
DX: Z43.1 Encounter for attention to gastrostomy (principal); I10 Essential (primary) hypertension; M19.90 Unspecified osteoarthritis, unspecified site; Z86.73 Personal history of transient ischemic attack (TIA), and cerebral infarction without residual deficits; Z86.11 Personal history of tuberculosis; Z95.0 Presence of cardiac pacemaker; Z79.899 Other long term (current) drug therapy
CPT/HCPCS: 74018; 99282; Q9963

== ENCOUNTER 2019-06-14 23:42 | Observation (INO) | payer MEDICARE ==
[2019-06-15] MEDS ORDERED: SODIUM CHLORIDE 0.9% 1000 ML 1,000 ML IV ONE (00:20)
[2019-06-15 01:03] LABS: Hematocrit 28.7 % (35.5-45.6); Hemoglobin 9.9 gm/dl (11.8-15.2); Mean Corpuscular HGB Conc 34 % (32-34); Mean Corpuscular Volume 89 fl (84-94); Red Blood Count 3.22 M/mm3 (3.65-5.03); Red Cell Distribution Width 15.2 % (13.2-15.2)
--- NOTE | 2019-06-15 01:04 | XRay Report ---
EXAMINATION: Abdominal radiograph, one view, 06/15/2019 CLINICAL INFORMATION: Constipation. History of bright red stool. COMPARISON: Abdominal radiograph, 05/12/2019 FINDINGS: The bowel gas pattern is nonobstructive. PEG tube overlies the left mid abdomen. Evaluation is limited secondary to patient positioning. IMPRESSION: Nonobstructive bowel gas pattern. Signer Name: Claire Laughlin MD Signed: 06/15/2019 12:59 AM Workstation Name: [email or web address]
[2019-06-15 01:13] LABS: INR 1.05 (0.87-1.13)
[2019-06-15 01:14] LABS: Partial Thromboplastin Time 29.7 Sec. (24.2-36.6)
--- NOTE | 2019-06-15 01:17 | Emergency Department Report ---
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 Patient is a bedbound patient. He presents to the emergency room for bright red blood per rectal. Family members report that he's had 2 days of constipation. He reports that he had bright blood with mucus. Patient is contracted and nonverbal from his previous CVA. Patient is on chronic Percocet. MD complaint: blood streaked stool -: This evening Radiation: none Severity scale (0 -10): 0 Improves with: none Worsens with: none Context: other (active rectal bleeding) Treatments Prior to Arrival: none - Related Data Home Medications Medication Instructions Recorded Confirmed Last Taken Simvastatin 20 mg PO QHS 01/18/15 11/26/17 03/30/16 oxyCODONE /ACETAMINOPHEN 5 - 325 mg PO Q6H PRN 11/10/16 11/26/17 Unknown Previous Rx's Medication Instructions Recorded Last Taken Type Clopidogrel [Plavix] 75 mg PO QDAY tablet 11/30/15 03/30/16 Rx Metoprolol [Lopressor TAB] 50 mg PO DAILY #30 tablet 11/30/15 03/30/16 Rx Pantoprazole [Protonix TAB] 40 mg PO QDAY #30 tablet 11/30/15 03/30/16 Rx Allergies Allergy/AdvReac Type Severity Reaction Status Date / Time No Known Allergies Allergy Verified 04/07/15 18:20 ED Review of Systems ROS: Stated complaint: RECTAL BLEEDING Other details as noted in HPI Comment: All other systems reviewed and negative ED Past Medical Hx - Past Medical History Hx Hypertension: Yes Hx CVA: Yes (pt had stroke 20 years ago) Hx Diabetes: No Hx Liver Disease: (Abnormal LFTs) Hx Sickle Cell Disease: No Hx Arthritis: Yes Hx Tuberculosis: Yes Hx Dementia: Yes Hx HIV: No Additional medical history: GOUT. ALZHEIMERS/dementia - Surgical History Hx Pacemaker: Yes Additional Surgical History: G Tube - Social History Smoking Status: Never Smoker - Medications Home Medications: Home Medications Medication Instructions Recorded Confirmed Last Taken Type Simvastatin 20 mg PO QHS 01/18/15 11/26/17 03/30/16 History Clopidogrel [Plavix] 75 mg PO QDAY tablet 11/30/15 11/26/17 03/30/16 Rx Metoprolol [Lopressor TAB] 50 mg PO DAILY #30 tablet 11/30/15 11/26/17 03/30/16 Rx Pantoprazole [Protonix TAB] 40 mg PO QDAY #30 tablet 11/30/15 11/26/17 03/30/16 Rx oxyCODONE /ACETAMINOPHEN 5 - 325 mg PO Q6H PRN 11/10/16 11/26/17 Unknown History ED Physical Exam - General Limitations: Language Barrier (nonverbal) General appearance: alert, in no apparent distress, cachectic - Head Head exam: Present: atraumatic, normocephalic - Eye Eye exam: Present: PERRL - ENT ENT exam: Present: mucous membranes dry - Neck Neck exam: Present: full ROM - Respiratory Respiratory exam: Present: normal lung sounds bilaterally. Absent: respiratory distress - Cardiovascular Cardiovascular Exam: Present: regular rate, normal rhythm. Absent: systolic murmur, diastolic murmur, rubs, gallop - GI/Abdominal GI/Abdominal exam: Present: soft. Absent: distended - Rectal Rectal exam: Present: normal rectal tone, heme (+) stool, bloody stool - exam: Present: circumcision - Extremities Exam Extremities exam: Absent: full ROM - Back Exam Back exam: Absent: normal inspection - Neurological Exam Neurological exam: Present: alert - Psychiatric Psychiatric exam: Present: normal affect - Skin Skin exam: Present: warm, dry, intact, normal color. Absent: rash ED Course Vital Signs 06/14/19 06/15/19 23:54 00:22 Temperature 97.7 F Pulse Rate 87 Respiratory 18 12 Rate Blood Pressure 115/73 O2 Sat by Pulse 99 Oximetry ED Medical Decision Making - Lab Data Result diagrams: 06/15/19 00:26 06/15/19 00:26 - Radiology Data Radiology results: report reviewed Patient: CLARENCE TEJEDA MR#: [id number] : 1935 Acct:[id number] Age/Sex: 83 / M ADM Date: 06/14/19 Loc: ED Attending Dr: Ordering Physician: KISHA SEVILLA Date of Service: 06/15/19 Procedure(s): XR abdomen 1V ap Accession Number(s): [id number] cc: KISHA SEVILLA Fluoro Time In Minutes: EXAMINATION: Abdominal radiograph, one view, 06/15/2019 CLINICAL INFORMATION: Constipation. History of bright red stool. COMPARISON: Abdominal radiograph, 05/12/2019 FINDINGS: The bowel gas pattern is nonobstructive. PEG tube overlies the left mid abdomen. Evaluation is limited secondary to patient positioning. IMPRESSION: Nonobstructive bowel gas pattern. 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 Patient is a bedbound patient. He presents to the emergency room for bright red blood per rectal. Family members report that he's had 2 days of constipation. He reports that he had bright blood with mucus. Patient is contracted and nonverbal from his previous CVA. Patient is on chronic Percocet. Spoke with Dr. Devon Horan from [facility] they would like patient to be placed on nothing by mouth GoLYTELY and they will scope in the morning. Spoke to Dr. Boyd hospitalists for admission. Bridge orders have been placed. Critical care attestation.: If time is entered above; I have spent that time in minutes in the direct care of this critically ill patient, excluding procedure time. ED Disposition Clinical Impression: Lower GI bleed, Dementia in Alzheimer's disease Disposition: OP ADMIT IP TO THIS HOSP Is pt being admited?: Yes Does the pt Need Aspirin: No Condition: Stable Referrals: PRIMARY CARE, [Primary Care Provider] - 3-5 Days Forms: Accompanied Note
[2019-06-15 01:26] LABS: Alanine Aminotransferase 7 units/L (7-56); Albumin 3.7 g/dL (3.9-5); BUN/Creatinine Ratio 14; Blood Urea Nitrogen 11 mg/dL (9-20); Calcium 9.4 mg/dL (8.4-10.2); Hemolysis Index 0
[2019-06-15 01:57] LABS: Total Cells Counted 100
[2019-06-15 01:58] LABS: Anisocytosis 1+; Platelet Clumps 1+
[2019-06-15 02:24] LABS: Platelet Count 221 K/mm3 (140-440)
[2019-06-15] MEDS ORDERED: MORPHINE 2 MG/1 ML INJ IV PRN (04:15)
[2019-06-15] MEDS ORDERED: ONDANSETRON 4 MG/2 ML INJ IV PRN (04:15)
[2019-06-15] MEDS ORDERED: ACETAMINOPHEN 325 MG TAB PO PRN (04:15)
[2019-06-15] MEDS ORDERED: ALBUTEROL 2.5 MG/3 ML NEBU IH PRN (04:15)
--- NOTE | 2019-06-15 04:19 | History and Physical Report ---
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 The patient has a G-tube and comes to the ED every 4 to 6 months to have the G-tube changed. Has not had any hospitalizations in the last year. He presents to the ED accompanied by the daughter today reporting that the patient has been noted to have 2 days of constipation and today while the patient was being changed was noted to have bright blood with mucus in the rect al area. Patient's family reports prior history but at the time was sent to be secondary to hemorrhoids. Past medical history Hx Hypertension: Yes Hx CVA: Yes (pt had stroke 20 years ago) Hx Diabetes: No Hx Liver Disease: (Abnormal LFTs) Hx Sickle Cell Disease: No Hx Arthritis: Yes Hx Tuberculosis: Yes Hx Dementia: Yes Hx HIV: No Additional medical history: GOUT. ALZHEIMERS/dementia Past surgical history: G-tube placement, pacemaker placement Past History Social history: lives with family, AND/DNR-allow natural . denies: smoking, alcohol abuse, prescription drug abuse, IV drug use Family history: denies: no significant family history Medications and Allergies Allergies Allergy/AdvReac Type Severity Reaction Status Date / Time No Known Allergies Allergy Verified 04/07/15 18:20 Home Medications Medication Instructions Recorded Confirmed Last Taken Type Simvastatin 20 mg PO QHS 01/18/15 11/26/17 03/30/16 History Clopidogrel [Plavix] 75 mg PO QDAY tablet 11/30/15 11/26/17 03/30/16 Rx Metoprolol [Lopressor TAB] 50 mg PO DAILY #30 tablet 11/30/15 11/26/17 03/30/16 Rx Pantoprazole [Protonix TAB] 40 mg PO QDAY #30 tablet 11/30/15 11/26/17 03/30/16 Rx oxyCODONE /ACETAMINOPHEN 5 - 325 mg PO Q6H PRN 11/10/16 11/26/17 Unknown History Review of Systems ROS unobtainable: due to mental status (Patient with advanced dementia inf ormation obtained from daughter at bedside) Constitutional: weight loss, anorexia, fatigue, weakness, malaise, lethargy, no weight gain, no fever, no chills, no sweats, no night sweats Rectal: bleeding, hemorrhoids Musculoskeletal: other (Severely contracted) Integumentary: wounds (Stage I pressure wound of the sacrum) Exam - Physical Exam Narrative exam: VITAL SIGNS: Reviewed. GENERAL: The patient appears cachectic and severely contracted vital signs as documented. HEAD: No signs of head trauma. EYES: Pupils are equal. Extraocular motions intact. EARS: Hearing appears intact. Although patient not following any commands at this time and is aphasic MOUTH: Oropharynx is normal except for noted missing dentition. NECK: No adenopathy, no JVD. CHEST: Chest with clear breath sounds bilaterally. No wheezes, rales, or rhonchi. CARDIAC: Regular rate and rhythm. S1 and S2, without murmurs, gallops, or rubs . VASCULAR: No Edema. Peripheral pulses normal and equal in all extremities. ABDOMEN: Soft, scaphoid non tender and non distended. No rebound or guarding, and no masses palpated. Bowel Sounds normal. MUSCULOSKELETAL: Severely contracted NEUROLOGIC EXAM: Alert and oriented x 3 No focal sensory or strength deficits. Speech normal. Follows commands. PSYCHIATRIC: Mood normal. SKIN: Stage I pressure ulcer detail exam as documented in skin assessment - Constitutional Vitals: Temp Pulse Resp BP Pulse Ox 97.7 F 87 12 115/73 99 06/14/19 23:54 06/14/19 23:54 06/15/19 00:22 06/14/19 23:54 06/14/19 23:54 Results - Labs CBC & Chem 7: 06/15/19 00:26 06/15/19 00:26 Labs: Laboratory Last Values WBC 4.1 K/mm3 (4.5-11.0) L 06/15/19 00:26 RBC 3.22 M/mm3 (3.65-5.03) L 06/15/19 00:26 Hgb 9.9 gm/dl (11.8-15.2) L 06/15/19 00:26 Hct 28.7 % (35.5-45.6) L 06/15/19 00:26 MCV 89 fl (84-94) 06/15/19 00:26 MCH 31 pg (28-32) 06/15/19 00:26 MCHC 34 % (32-34) 06/15/19 00:26 RDW 15.2 % (13.2-15.2) 06/15/19 00:26 Plt Count 221 K/mm3 (140-440) 06/15/19 00:26 [place] % (Auto) Bedspread Seamer 06/15/19 00:26 Add Manual Diff Complete 06/15/19 00:26 Total Counted 100 06/15/19 00:26 Seg Neuts % (Manual) 38.0 % (40.0-70.0) L 06/15/19 00:26 Band Neutrophils % 0 % 06/15/19 00:26 Lymphocytes % (Manual) 43.0 % (13.4-35.0) H 06/15/19 00:26 Reactive Lymphs % (Man) 0 % 06/15/19 00:26 Monocytes % (Manual) 16.0 % (0.0-7.3) H 06/15/19 00:26 Eosinophils % (Manual) 2.0 % (0.0-4.3) 06/15/19 00:26 Basophils % (Manual) 1.0 % (0.0-1.8) 06/15/19 00:26 Metamyelocytes % 0 % 06/15/19 00:26 Myelocytes % 0 % 06/15/19 00:26 Promyelocytes % 0 % 06/15/19 00:26 Blast Cells % 0 % 06/15/19 00:26 Nucleated RBC % Not Reportable 06/15/19 00:26 Seg Neutrophils # Man 1.6 K/mm3 (1.8-7.7) L 06/15/19 00:26 Band Neutrophils # 0.0 K/mm3 06/15/19 00:26 Lymphocytes # (Manual) 1.8 K/mm3 (1.2-5.4) 06/15/19 00:26 Abs React Lymphs (Man) 0.0 K/mm3 06/15/19 00:26 Monocytes # (Manual) 0.7 K/mm3 (0.0-0.8) 06/15/19 00:26 Eosinophils # (Manual) 0.1 K/mm3 (0.0-0.4) 06/15/19 00:26 Basophils # (Manual) 0.0 K/mm3 (0.0-0.1) 06/15/19 00:26 Metamyelocytes # 0.0 K/mm3 06/15/19 00:26 Myelocytes # 0.0 K/mm3 06/15/19 00:26 Promyelocytes # 0.0 K/mm3 06/15/19 00:26 Blast Cells # 0.0 K/mm3 06/15/19 00:26 WBC Morphology Not Reportable 06/15/19 00:26 Hypersegmented Neuts Not Reportable 06/15/19 00:26 Hyposegmented Neuts Not Reportable 06/15/19 00:26 Hypogranular Neuts Not Reportable 06/15/19 00:26 Smudge Cells Not Reportable 06/15/19 00:26 Toxic Granulation Not Reportable 06/15/19 00:26 Toxic Vacuolation Not Reportable 06/15/19 00:26 Dohle Bodies Not Reportable 06/15/19 00:26 Pelger-Huet Anomaly Not Reportable 06/15/19 00:26 Kristen Rods Not Reportable 06/15/19 00:26 Platelet Estimate Not Reportable 06/15/19 00:26 Clumped Platelets 1+ 06/15/19 00:26 Plt Clumps, EDTA Not Reportable 06/15/19 00:26 Large Platelets Not Reportable 06/15/19 00:26 Giant Platelets Not Reportable 06/15/19 00:26 Platelet Satelliting Not Reportable 06/15/19 00:26 Plt Morphology Comment Not Reportable 06/15/19 00:26 RBC Morphology Not Reportable 06/15/19 00:26 Dimorphic RBCs Not Reportable 06/15/19 00:26 Polychromasia Not Reportable 06/15/19 00:26 Hypochromasia Not Reportable 06/15/19 00:26 Poikilocytosis Not Reportable 06/15/19 00:26 Anisocytosis 1+ 06/15/19 00:26 Microcytosis Not Reportable 06/15/19 00:26 Macrocytosis Not Reportable 06/15/19 00:26 Spherocytes Not Reportable 06/15/19 00:26 Pappenheimer Bodies Not Reportable 06/15/19 00:26 Sickle Cells Not Reportable 06/15/19 00:26 Target Cells Not Reportable 06/15/19 00:26 Tear Drop Cells Not Reportable 06/15/19 00:26 Ovalocytes Not Reportable 06/15/19 00:26 Helmet Cells Not Reportable 06/15/19 00:26 [place] Bodies Not Reportable 06/15/19 00:26 [place] Rings Not Reportable 06/15/19 00:26 Maurisio Cells Not Reportable 06/15/19 00:26 Bite Cells Not Reportable 06/15/19 00:26 Crenated Cell Not Reportable 06/15/19 00:26 Elliptocytes Not Reportable 06/15/19 00:26 Acanthocytes (Spur) Not Reportable 06/15/19 00:26 Rouleaux Not Reportable 06/15/19 00:26 Hemoglobin C Crystals Not Reportable 06/15/19 00:26 Schistocytes Not Reportable 06/15/19 00:26 Malaria parasites Not Reportable 06/15/19 00:26 Antonio Bodies Not Reportable 06/15/19 00:26 Hem Pathologist Commnt No 06/15/19 00:26 PT 13.6 Sec. (12.2-14.9) 06/15/19 00:26 INR 1.05 (0.87-1.13) 06/15/19 00:26 APTT 29.7 Sec. (24.2-36.6) 06/15/19 00:26 Sodium 122 mmol/L (137-145) L 06/15/19 00:26 Potassium 5.0 mmol/L (3.6-5.0) 06/15/19 00:26 Chloride 87.2 mmol/L (98-107) L 06/15/19 00:26 Carbon Dioxide 23 mmol/L (22-30) 06/15/19 00:26 Anion Gap 17 mmol/L 06/15/19 00:26 BUN 11 mg/dL (9-20) 06/15/19 00:26 Creatinine 0.8 mg/dL (0.8-1.5) 06/15/19 00:26 Estimated GFR > 60 ml/min 06/15/19 00:26 BUN/Creatinine Ratio 14 % 06/15/19 00:26 Glucose 134 mg/dL (75-100) H 06/15/19 00:26 Calcium 9.4 mg/dL (8.4-10.2) 06/15/19 00:26 Total Bilirubin 0.30 mg/dL (0.1-1.2) 06/15/19 00:26 AST 14 units/L (5-40) 06/15/19 00:26 ALT 7 units/L (7-56) 06/15/19 00:26 Alkaline Phosphatase 76 units/L (35-129) 06/15/19 00:26 Total Protein 7.1 g/dL (6.3-8.2) 06/15/19 00:26 Albumin 3.7 g/dL (3.9-5) L 06/15/19 00:26 Albumin/Globulin Ratio 1.1 % 06/15/19 00:26 Blood Type A NEGATIVE 06/15/19 00:37 Antibody Screen Negative 06/15/19 00:37 Assessment and Plan Assessment and plan: Patient is an 83-year-old male with history of CVA over 20 years ago, 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 The patient has a G-tube and comes to the ED every 4 to 6 months to have the G-tube changed. Has not had any hospitalizations in the last year. He presents to the ED accompanied by the daughter today reporting that the patient has been noted to have 2 days of constipation and today while the patient was being changed was noted to have bright blood with mucus in the rectal area. Patient's family reports prior history but at the time was sent to be secondary to hemorrhoids. Lower GI bleed likely hemorrhoidal Constipation secondary to chronic opiate therapy Hospice patient Chronic anemia Advanced dementia Alzheimer type Cardiomyopathy status post pacemaker Prostate cancer Hypertension Status post G-tube for feeding on tube feeds Plan We will place patient in observation pending GI evaluation Monitor H&H every 6-8 hours and transfuse as needed if hemoglobin drops below 7 Counseling provided to family about opiate therapy patient not on any stool softener at home Home medications reviewed Patient will benefit from stool softener on discharge family could not describe the pain the patient has for this pain medication. Will start on hemorrhoidal cream We will hold Plavix and MetroCream at this time and monitor blood pressure closely we will add hydralazine as needed. Risk of stroke discussed with family in detail especially in the setting of holding antiplatelet medications. DVT and GI prophylaxis Plan of care discussed with daughter at the bedside. Advance Directives: Yes Plan of care discussed with patient/family: Yes
[2019-06-15] MEDS ORDERED: hydrALAZINE 20 MG/1 ML INJ IV PRN (04:30)
[2019-06-15] MEDS ORDERED: PHENYLEPHRINE/SHARK LIVER/CCB 0.25/3/85.5%(PREP H) RECT SUPP PR PRN (04:30)
[2019-06-15] MEDS ORDERED: POLYETHYLENE GLYCOL/ELECT SOLN 4000 ML PO ONE (04:42)
[2019-06-15] MEDS ORDERED: D5W/0.9% NACL 1,000 ML IV SCH (05:00)
[2019-06-15 05:23] LABS: Hematocrit 27.2 % (35.5-45.6); Hemoglobin 9.1 gm/dl (11.8-15.2)
[2019-06-15] MEDS: PANTOPRAZOLE 40 MG INJ IV SCH (09:28)
--- NOTE | 2019-06-15 09:28 | Gastroenterology Consultation ---
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 This morning patient was resting in bed w/o acute distress (unable to provide history and no family at bedside; hx obtained via chart review. No active signs of bleeding this am per nursing. No evidence of hematemesis, melena, abd pain, or vomiting. Prior GI hx or previous colonoscopy unknown. Family reports hx of hemorrhoids per chart review. Past History Past Medical History: other (as per HPI) Past Surgical History: Other (PEG, pacemaker) Social history: lives with family, AND/DNR-allow natural . denies: smoking, alcohol abuse, prescription drug abuse, IV drug use Family history: denies: no significant family history Medications and Allergies Allergies Allergy/AdvReac Type Severity Reaction Status Date / Time No Known Allergies Allergy Verified 04/07/15 18:20 Home Medications Medication Instructions Recorded Confirmed Last Taken Type Simvastatin 20 mg PO QHS 01/18/15 11/26/17 03/30/16 History Clopidogrel [Plavix] 75 mg PO QDAY tablet 11/30/15 11/26/17 03/30/16 Rx Metoprolol [Lopressor TAB] 50 mg PO DAILY #30 tablet 11/30/15 11/26/17 03/30/16 Rx Pantoprazole [Protonix TAB] 40 mg PO QDAY #30 tablet 11/30/15 11/26/17 03/30/16 Rx oxyCODONE /ACETAMINOPHEN 5 - 325 mg PO Q6H PRN 11/10/16 11/26/17 Unknown History Active Meds: Active Medications Acetaminophen (Tylenol) 650 mg PO Q4H PRN PRN Reason: Pain MILD(1-3)/Fever >100.5/BAKER Albuterol (Proventil) 2.5 mg IH Q3HRT PRN PRN Reason: Shortness Of Breath Bisacodyl (Dulcolax) 10 mg SC QDAY PRN PRN Reason: Constipation unrelieved by MOM Hydralazine HCl (Apresoline) 10 mg IV Q4HR PRN PRN Reason: Hypertension Dextrose/Sodium Chloride (D5ns) 1,000 mls @ 125 mls/hr IV DIRECT JAVED Morphine Sulfate (Morphine) 2 mg IV Q4H PRN PRN Reason: Pain, Moderate (4-6) Ondansetron HCl (Zofran) 4 mg IV Q8H PRN PRN Reason: Nausea And Vomiting Pantoprazole Sodium (Protonix) 40 mg IV QDAY [facility] Phenyleph/Shark Oil/Antelope Butter (Hemorrhoidal 0.25/3/85.5%) 1 each SC Q6H PRN PRN Reason: Hemorrhoids Sodium Chloride (Sodium Chloride Flush Syringe 10 Ml) 10 ml IV BID JAVED Sodium Chloride (Sodium Chloride Flush Syringe 10 Ml) 10 ml IV PRN PRN PRN Reason: LINE FLUSH medications reviewed/updated as required Review of Systems - Review of Systems ROS unobtainable: due to mental status Exam - Constitutional Vital Signs: Temp Pulse Resp BP Pulse Ox 97.8 F 131 H 20 152/104 100 06/15/19 08:54 06/15/19 08:54 06/15/19 08:54 06/15/19 08:54 06/15/19 08:54 General appearance: no acute distress - Respiratory Respiratory effort: normal Respiratory: bilateral: diminished - Cardiovascular Rhythm: other (tachycardia) - Gastrointestinal General gastrointestinal: Present: soft, non-distended, normal bowel sounds, other (+PEG) - Musculoskeletal Musculoskeletal: other (contracted) - Neurologic Neurological: other (alert, aphasic) - Labs CBC & Chem 7: 06/15/19 04:46 06/15/19 00:26 Lab Results: Laboratory Results - last 24 hr 06/15/19 06/15/19 06/15/19 00:26 00:26 00:26 WBC 4.1 L RBC 3.22 L Hgb 9.9 L Hct 28.7 L MCV 89 MCH 31 MCHC 34 RDW 15.2 Plt Count 221 [place] % (Auto) [employer] Vault Supervisor Add Manual Diff Complete Total Counted 100 Seg Neuts % (Manual) 38.0 L Band Neutrophils % 0 Lymphocytes % (Manual) 43.0 H Reactive Lymphs % (Man) 0 Monocytes % (Manual) 16.0 H Eosinophils % (Manual) 2.0 Basophils % (Manual) 1.0 Metamyelocytes % 0 Myelocytes % 0 Promyelocytes % 0 Blast Cells % 0 Nucleated RBC % Not Reportable Seg Neutrophils # Man 1.6 L Band Neutrophils # 0.0 Lymphocytes # (Manual) 1.8 Abs React Lymphs (Man) 0.0 Monocytes # (Manual) 0.7 Eosinophils # (Manual) 0.1 Basophils # (Manual) 0.0 Metamyelocytes # 0.0 Myelocytes # 0.0 Promyelocytes # 0.0 Blast Cells # 0.0 WBC Morphology Not Reportable Hypersegmented Neuts Not Reportable Hyposegmented Neuts Not Reportable Hypogranular Neuts Not Reportable Smudge Cells Not Reportable Toxic Granulation Not Reportable Toxic Vacuolation Not Reportable Dohle Bodies Not Reportable Pelger-Huet Anomaly Not Reportable Kristen Rods Not Reportable Platelet Estimate Not Reportable Clumped Platelets 1+ Plt Clumps, EDTA Not Reportable Large Platelets Not Reportable Giant Platelets Not Reportable Platelet Satelliting Not Reportable Plt Morphology Comment Not Reportable RBC Morphology Not Reportable Dimorphic RBCs Not Reportable Polychromasia Not Reportable Hypochromasia Not Reportable Poikilocytosis Not Reportable Anisocytosis 1+ Microcytosis Not Reportable Macrocytosis Not Reportable Spherocytes Not Reportable Pappenheimer Bodies Not Reportable Sickle Cells Not Reportable Target Cells Not Reportable Tear Drop Cells Not Reportable Ovalocytes Not Reportable Helmet Cells Not Reportable [place] Bodies Not Reportable [place] Rings Not Reportable [place] Cells Not Reportable Bite Cells Not Reportable Crenated Cell Not Reportable Elliptocytes Not Reportable Acanthocytes (Spur) Not Reportable Rouleaux Not Reportable Hemoglobin C Crystals Not Reportable Schistocytes Not Reportable Malaria parasites Not Reportable Antonio Bodies Not Reportable Hem Pathologist Commnt No PT 13.6 INR 1.05 APTT 29.7 Sodium 122 L Potassium 5.0 Chloride 87.2 L Carbon Dioxide 23 Anion Gap 17 BUN 11 Creatinine 0.8 Estimated GFR > 60 BUN/Creatinine Ratio 14 Glucose 134 H Calcium 9.4 Total Bilirubin 0.30 AST 14 ALT 7 Alkaline Phosphatase 76 Total Protein 7.1 Albumin 3.7 L Albumin/Globulin Ratio 1.1 Blood Type Antibody Screen 06/15/19 06/15/19 00:37 04:46 WBC RBC Hgb 9.1 L Hct 27.2 L MCV MCH MCHC RDW Plt Count [place] % (Auto) Add Manual Diff Total Counted Seg Neuts % (Manual) Band Neutrophils % Lymphocytes % (Manual) Reactive Lymphs % (Man) Monocytes % (Manual) Eosinophils % (Manual) Basophils % (Manual) Metamyelocytes % Myelocytes % Promyelocytes % Blast Cells % Nucleated RBC % Seg Neutrophils # Man Band Neutrophils # Lymphocytes # (Manual) Abs React Lymphs (Man) Monocytes # (Manual) Eosinophils # (Manual) Basophils # (Manual) Metamyelocytes # Myelocytes # Promyelocytes # Blast Cells # WBC Morphology Hypersegmented Neuts Hyposegmented Neuts Hypogranular Neuts Smudge Cells Toxic Granulation Toxic Vacuolation Dohle Bodies Pelger-Huet Anomaly Kristen Rods Platelet Estimate Clumped Platelets Plt Clumps, EDTA Large Platelets Giant Platelets Platelet Satelliting Plt Morphology Comment RBC Morphology Dimorphic RBCs Polychromasia Hypochromasia Poikilocytosis Anisocytosis Microcytosis Macrocytosis Spherocytes Pappenheimer Bodies Sickle Cells Target Cells Tear Drop Cells Ovalocytes Helmet Cells [place] Bodies [place] Rings [place] Cells Bite Cells Crenated Cell Elliptocytes Acanthocytes (Spur) Rouleaux Hemoglobin C Crystals Schistocytes Malaria parasites Antonio Bodies Hem Pathologist Commnt PT INR APTT Sodium Potassium Chloride Carbon Dioxide Anion Gap BUN Creatinine Estimated GFR BUN/Creatinine Ratio Glucose Calcium Total Bilirubin AST ALT Alkaline Phosphatase Total Protein Albumin Albumin/Globulin Ratio Blood Type A NEGATIVE Antibody Screen Negative Assessment and Plan 1.BRBPR 2.H/o constipation/hemorrhoids 3.anemia-chronic -H/H 9.08/15.2-stable compared to previous labs -continue to monitor H/H and transfuse as needed -family reported bright red blood mixed with stool following 2 days of constipation (likely 2/2 chronic narcotic use) -no active signs of bleeding this am per nursing (no hematemesis or melena) -etiology-likely anorectal in origin (hemorrhoids) -colon prep not given overnight in ED -will order enema and change colonoscopy to flex sig today for further evaluation -Keep NPO for now -start on daily bowel regimen for constipation with Miralax tomorrow -continue supportive care -further recommendations to follow flex sig results
[2019-06-15 11:04] LABS: Hematocrit 26.9 % (35.5-45.6)
--- NOTE | 2019-06-15 13:58 | Anesthesia Consultation ---
Anesthesia Consult and Med Hx Date of service: 06/15/19 - Airway Anesthetic Teeth Evaluation: Poor ROM Head & Neck: Adequate Mental/Hyoid Distance: Adequate Mallampati Class: Class I Intubation Access Assessment: Probably Good - Pulmonary Exam CTA: Yes - Cardiac Exam Cardiac Exam: No Murmur - Pre-Operative Health Status ASA Pre-Surgery Classification: ASA3 Proposed Anesthetic Plan: MAC - Pulmonary Hx Smoking: Yes (tobacco chewing) - Cardiovascular System Hx Hypertension: Yes Hx Cardia Arrhythmia: Yes (AFib) Hx Pacemaker: Yes - Central Nervous System CVA: Yes (20 years) Hx Psychiatric Problems: No - Endocrine Hx End Stage Renal Disease: No Hx Liver Disease: (Abnormal LFTs) Hx Insulin Dependent Diabetes: No - Hematic Hx Anemia: No Hx Sickle Cell Disease: No - Other Systems Hx Cancer: Yes
[2019-06-15] MEDS ORDERED: LIDOCAINE MPF (2%) 20 MG/1 ML VIAL 5 ML ONE (14:00)
--- NOTE | 2019-06-15 14:06 | Anesthesia Day of Surgery ---
Anesthesia Day of Surgery - Day of Surgery Patient Examined: Yes Patient H&P Reviewed: Yes Patient is NPO: Yes
[2019-06-15] MEDS ORDERED: SODIUM CHLORIDE 0.9% 1000 ML 1,000 ML ONE (14:18)
[2019-06-15] MEDS ORDERED: PROPOFOL 200 MG/20 ML VIAL IV ONE (14:24)
[2019-06-15] MEDS ORDERED: SODIUM CHLORIDE 0.9% 1000 ML 1,000 ML IV SCH ×2 (15:00→18:00)
--- NOTE | 2019-06-15 15:29 | Post Operative Note ---
Pre-op diagnosis: rectal bleeding Post-op diagnosis: same Findings: Flex sig: poor prep, - erythema with ulceration 2 area approx 5-6 cm from anal verge with erythema (?SRUS), bx's - negative other Procedure: flex sig w/ bx Anesthesia: MAC Surgeon: PAULIE MUNOZ Estimated blood loss: none Pathology: list Specimen disposition: to lab Condition: stable Disposition: floor
[2019-06-15 16:56] LABS: Hematocrit 22.7 % (35.5-45.6); Hemoglobin 7.7 gm/dl (11.8-15.2)
--- NOTE | 2019-06-15 17:37 | Event Note ---
Date: 06/15/19 Patient seen and examined, labs reviewed, low sodium level noted, change fluids to NS and monitor sodium. Await final GI input.
[2019-06-15 22:26] LABS: Hematocrit 23.2 % (35.5-45.6)
[2019-06-16 06:35] LABS: Hematocrit 23.3 % (35.5-45.6); Hemoglobin 7.8 gm/dl (11.8-15.2); Mean Corpuscular HGB Conc 34 % (32-34); Mean Corpuscular Volume 89 fl (84-94); Platelet Count 209 K/mm3 (140-440); Red Blood Count 2.64 M/mm3 (3.65-5.03)
[2019-06-16 06:54] LABS: BUN/Creatinine Ratio 13; Blood Urea Nitrogen 9 mg/dL (9-20); Calcium 8.9 mg/dL (8.4-10.2); Hemolysis Index 0
[2019-06-16 07:41] LABS: Basophils % (Manual) 0 % (0.0-1.8); Eosinophils % (Manual) 0 % (0.0-4.3); Total Cells Counted 100
[2019-06-16 07:42] LABS: Anisocytosis Few; Hypochromasia Few; Ovalocytes Few; Platelet Estimate Consistent w Auto
[2019-06-16] MEDS ORDERED: POLYETHYLENE GLYCOL 3350 17 GM POWDER PO SCH (10:00)
--- NOTE | 2019-06-16 10:42 | Discharge Summary ---
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 The patient has a G-tube and comes to the ED every 4 to 6 months to have the G-tube changed. Has not had any hospitalizations in the last year. He presents to the ED accompanied by the daughter today reporting that the patient has been noted to have 2 days of constipation and today while the patient was being changed was noted to have bright blood with mucus in the rectal area. Patient's family reports prior history but at the time was sent to be secondary to hemorrhoids. * Flex sig: poor prep, - erythema with ulceration 2 area approx 5-6 cm from anal verge with erythema (?SRUS), bx's - negative other * Plan: f/u bx's - Miralax 17 gm po qd -steroids suppositories bid x 2 wks - ok to d/c in am from GI standpoint if stable - will signs off, Dr. Biswas on wknd, call if needed * Patient clinically stable, hgb had a downward trend but stable. * No evidence of fever, advised Daughter for repeat l;abs in 2-5 days Lower GI bleed likely hemorrhoidal Constipation secondary to chronic opiate therapy Leukocytosis- No evidence of Fever. Chronic anemia Advanced dementia Alzheimer type Cardiomyopathy status post pacemaker Prostate cancer Hypertension Status post G-tube for feeding on tube feeds Disposition: TO HOME OR SELFCARE Time spent for discharge: 35 mins Core Measure Documentation - Palliative Care Palliative Care/ Comfort Measures: Not Applicable - Core Measures Any of the following diagnoses?: none Exam - Physical Exam Narrative exam: VITAL SIGNS: Reviewed. GENERAL: The patient appears cachectic and severely contracted vital signs as documented. HEAD: No signs of head trauma. EYES: Pupils are equal. Extraocular motions intact. EARS: Hearing appears intact. Although patient not following any commands at this time and is aphasic MOUTH: Oropharynx is normal except for noted missing dentition. NECK: No adenopathy, no JVD. CHEST: Chest with clear breath sounds bilaterally. No wheezes, rales, or rhonchi. CARDIAC: Regular rate and rhythm. S1 and S2, without murmurs, gallops, or rubs. VASCULAR: No Edema. Peripheral pulses normal and equal in all extremities. ABDOMEN: Soft, scaphoid non tender and non distended. No rebound or guarding, and no masses palpated. Bowel Sounds normal. MUSCULOSKELETAL: Severely contracted NEUROLOGIC EXAM: awake, oriented x 1 No focal sensory or strength deficits. Speech normal. Follows commands. PSYCHIATRIC: Mood normal. SKIN: Stage I pressure ulcer detail exam as documented in skin assessment - Constitutional Vitals: Temp Pulse Resp BP Pulse Ox 98.5 F 138 H 20 150/89 100 06/16/19 02:33 06/16/19 02:33 06/16/19 02:33 06/16/19 02:33 06/16/19 08:37 Plan Activity: advance as tolerated, fall precautions Diet: low fat, advance as tolerated Special Instructions: other (fall precautions) Follow up with: PRIMARY MD ALICIA [Primary Care Provider] - 3-5 Days EMILIA BISWAS MD [Staff Physician] - 7 Days Forms: Accompanied Note Prescriptions: PE/Shark Liver/Ccb [Hemorrhoidal 0.25/3/85.5%] 1 each AK Q6H PRN #1 supp.rect PRN Reason: Hemorrhoids cephALEXin [Keflex] 500 mg PO Q8HR #9 cap Polyethylene Glycol 3350 [Miralax 3350] 17 gm PO BID #60 powd.pack
[2019-06-16] MEDS: PANTOPRAZOLE 40 MG INJ IV SCH (10:50)
[2019-06-16 13:19] VITALS: BP 144/67
[2019-06-17] MEDS ORDERED: PANTOPRAZOLE 40 MG TAB PO SCH (10:00)
== END 2019-06-16 16:15 | disposition home or self-care (01) ==
LOC: ED 23:42 → 2B-ACE 06-15 03:54
PROVIDERS: ADMIT Internal Medicine; ATTEND Internal Medicine
DX: K92.2 Gastrointestinal hemorrhage, unspecified (principal); D64.9 Anemia, unspecified; G30.9 Alzheimer's disease, unspecified; F02.80 Dementia in other diseases classified elsewhere, unspecified severity, without behavioral disturbance, psychotic disturbance, mood disturbance, and anxiety; I10 Essential (primary) hypertension; I42.9 Cardiomyopathy, unspecified; M19.90 Unspecified osteoarthritis, unspecified site; M10.9 Gout, unspecified; K59.00 Constipation, unspecified; Z51.5 Encounter for palliative care; Z86.73 Personal history of transient ischemic attack (TIA), and cerebral infarction without residual deficits; Z85.46 Personal history of malignant neoplasm of prostate; Z95.0 Presence of cardiac pacemaker; Z93.1 Gastrostomy status; Z79.02 Long term (current) use of antithrombotics/antiplatelets; Z79.899 Other long term (current) drug therapy
CPT/HCPCS: 36415; 45331; 74018; 80048; 80053; 84295; 85007; 85014; 85018; 85025; 85610; 85730; 86850; 86900; 86901; 88305; 96374; 96376; 99284; C9113; G0378; J2704; J7030; 96360; 96361

== ENCOUNTER 2019-11-01 11:35 | Emergency (ER) | payer MEDICARE ==
--- NOTE | 2019-11-01 12:41 | Emergency Department Report ---
ED General Adult HPI - General Chief complaint: Tube Replacement Stated complaint: FEEDING TUBE FELL OUT Time Seen by Provider: 11/01/19 12:15 Source: EMS, old records reviewed Mode of arrival: Stretcher Limitations: Other - History of Present Illness Initial comments: Mr. Glasgow is an 84 yo male with hx of dementia, CVA, atrial fibrillation, HTN, dysphagia, PUD presents wtih dislodged feeding tube. Patient is nonverbal. Hx obtained from medical record. Patient arrived via EMS -: unknown Improves with: cold therapy Worsens with: none - Related Data Home Medications Medication Instructions Recorded Confirmed Last Taken Simvastatin 20 mg PO QHS 01/18/15 06/16/19 03/30/16 oxyCODONE /ACETAMINOPHEN 5 - 325 mg PO Q6H PRN 11/10/16 06/16/19 Unknown Previous Rx's Medication Instructions Recorded Last Taken Type Clopidogrel [Plavix] 75 mg PO QDAY tablet 11/30/15 03/30/16 Rx Metoprolol [Lopressor TAB] 50 mg PO DAILY #30 tablet 11/30/15 03/30/16 Rx Pantoprazole [Protonix TAB] 40 mg PO QDAY #30 tablet 11/30/15 03/30/16 Rx PE/Shark Liver/Ccb [Hemorrhoidal 1 each ID Q6H PRN #1 supp.rect 06/16/19 Unknown Rx 0.25/3/85.5%] cephALEXin [Keflex] 500 mg PO Q8HR #9 cap 06/16/19 Unknown Rx polyethylene glycoL 3350 [Miralax 17 gm PO BID #60 powd.pack 06/16/19 Unknown Rx 3350] Allergies Allergy/AdvReac Type Severity Reaction Status Date / Time No Known Allergies Allergy Verified 04/07/15 18:20 ED Review of Systems ROS: Stated complaint: FEEDING TUBE FELL OUT Other details as noted in HPI Comment: Unobtainable due to pts medical conditions (Patient is nonverbal due to dementia and CVA) ED Past Medical Hx - Past Medical History Previous Medical History?: Yes Hx Hypertension: Yes Hx CVA: Yes (pt had stroke 20 years ago) Hx Diabetes: No Hx Pulmonary Embolism: No Hx Liver Disease: (Abnormal LFTs) Hx Sickle Cell Disease: No Hx Arthritis: Yes Hx Asthma: No Hx COPD: No Hx Tuberculosis: Yes Hx Dementia: Yes Hx HIV: No Additional medical history: GOUT. ALZHEIMERS/dementia - Surgical History Past Surgical History?: Yes Hx Pacemaker: Yes Additional Surgical History: G Tube - Social History Smoking Status: Former Smoker - Medications Home Medications: Home Medications Medication Instructions Recorded Confirmed Last Taken Type Simvastatin 20 mg PO QHS 01/18/15 06/16/19 03/30/16 History Clopidogrel [Plavix] 75 mg PO QDAY tablet 11/30/15 06/16/19 03/30/16 Rx Metoprolol [Lopressor TAB] 50 mg PO DAILY #30 tablet 11/30/15 06/16/19 03/30/16 Rx Pantoprazole [Protonix TAB] 40 mg PO QDAY #30 tablet 11/30/15 06/16/19 03/30/16 Rx oxyCODONE /ACETAMINOPHEN 5 - 325 mg PO Q6H PRN 11/10/16 06/16/19 Unknown History PE/Shark Liver/Ccb [Hemorrhoidal 1 each ID Q6H PRN #1 supp.rect 06/16/19 Unknown Rx 0.25/3/85.5%] cephALEXin [Keflex] 500 mg PO Q8HR #9 cap 06/16/19 Unknown Rx polyethylene glycoL 3350 [Miralax 17 gm PO BID #60 powd.pack 06/16/19 Unknown Rx 3350] ED Physical Exam - General Limitations: Other General appearance: alert, in no apparent distress, cachectic, other (Contracted upper and lower extremities patient appears chronically ill and frail) - Head Head exam: Present: atraumatic, normocephalic - Eye Eye exam: Absent: scleral icterus, conjunctival injection - ENT ENT exam: Present: mucous membranes moist - Neck Neck exam: Present: normal inspection, full ROM - Respiratory Respiratory exam: Present: normal lung sounds bilaterally. Absent: respiratory distress, rales, rhonchi - Cardiovascular Cardiovascular Exam: Present: tachycardia, irregular rhythm, normal heart sounds. Absent: systolic murmur, diastolic murmur, rubs, gallop - GI/Abdominal GI/Abdominal exam: Present: soft, normal bowel sounds, other (Gastrostomy site without tube no surrounding erythema ). Absent: distended, tenderness, guarding, rebound - Rectal Rectal exam: Present: deferred - Neurological Exam Neurological exam: Present: alert - Psychiatric Psychiatric exam: Present: flat affect - Skin Skin exam: Present: warm, dry. Absent: rash - Feeding Tube Replacement Reason for Replacement: fell out Initial Tube Inserted: greater than 4 weeks Type of Tube: gastrostomy Use of Tube: medications and feeding Insertion Site Prior to Procedure: clean Salvadorean Tube Size (F): 14 Balloon Size (mls): 5 Verification of Placement: gastrograffin injection Tube Secured by: tape/dressing Patient Tolerated Procedure: well ED Medical Decision Making - Radiology Data Radiology results: report reviewed, image reviewed Upon my personal review G-tube study KUB: Gastrografin filled gastrium continue to duodenum small bowel - Medical Decision Making Feeding tube replacement: Gastrografin G-tube check confirmed appropriate placement. Critical care attestation.: If time is entered above; I have spent that time in minutes in the direct care of this critically ill patient, excluding procedure time. ED Disposition Clinical Impression: Dislodged gastrostomy tube Disposition: DC-01 TO HOME OR SELFCARE Is pt being admited?: No Does the pt Need Aspirin: No Condition: Stable
--- NOTE | 2019-11-01 14:51 | XRay Report ---
ABDOMEN 2 VIEWS AFTER PEG TUBE INJECTION INDICATION: Feeding to gastrostomy tube replacement. COMPARISON: None available. FINDINGS: PEG tube has tip overlying left upper quadrant of abdomen on the initial splunk dashboard developer study. 50 cc Omnipaque 300 Contrast was injected through the PEG tube which confirms intraluminal placement in body of stom ach. Signer Name: Valentin Joe MD Signed: 11/01/2019 2:46 PM Workstation Name: [id number]
[2019-11-01 15:48] VITALS: BP 109/76
== END 2019-11-01 17:13 | disposition home or self-care (01) ==
LOC: ED 11:35
DX: K94.23 Gastrostomy malfunction (principal); I10 Essential (primary) hypertension; M13.88 Other specified arthritis, other site; F03.90 Unspecified dementia, unspecified severity, without behavioral disturbance, psychotic disturbance, mood disturbance, and anxiety; M10.9 Gout, unspecified; G30.8 Other Alzheimer's disease; Z87.891 Personal history of nicotine dependence; Z95.818 Presence of other cardiac implants and grafts
CPT/HCPCS: 43762; 74018; 99283; Q9967; 99282

== ENCOUNTER 2020-03-23 15:52 | Emergency (ER) | payer MEDICARE ==
[2020-03-23] MEDS ORDERED: VANCOMYCIN 750 MG in SODIUM CHLORIDE 0.9% 500 ML 500 ML IV ONE (16:21)
[2020-03-23] MEDS ORDERED: SODIUM CHLORIDE 0.9% 1000 ML IV SOLN IV ONE (16:21)
[2020-03-23] MEDS ORDERED: VANCOMYCIN 750 MG in SODIUM CHLORIDE 0.9% 250ML 250 ML IV ONE (16:45)
[2020-03-23] MEDS ORDERED: VANCOMYCIN PHARMACY TO DOSE IV SCH (17:00)
--- NOTE | 2020-03-23 17:15 | Emergency Department Report ---
ED General Adult HPI - General Chief complaint: Wound/Laceration Stated complaint: BED SORES Time Seen by Provider: 03/23/20 16:14 Source: EMS Mode of arrival: Stretcher Limitations: Altered Mental Status, Physical Limitation - History of Present Illness Initial comments: Mr. Glasgow is an 84 yo male with hx of dementia, CVA, atrial fibrillation, HTN, dysphagia, PUD presents with a large probably infected sore to the right hip. Patient lays in a contracted position. Seems as though he prefers to lay on his right side. Apparently he was turned over sometime today and his wound on the right hip had a foul odor and a great deal of purulent drainage. Blood pressure was taken which was in the 80s systolic. Is unknown whether the patient has had a fever nausea vomiting. Patient is nonverbal and cannot give a history himself. - Related Data Home Medications Medication Instructions Recorded Confirmed Last Taken Simvastatin 20 mg PO QHS 01/18/15 06/16/19 03/30/16 oxyCODONE /ACETAMINOPHEN 5 - 325 mg PO Q6H PRN 11/10/16 06/16/19 Unknown Previous Rx's Medication Instructions Recorded Last Taken Type Clopidogrel [Plavix] 75 mg PO QDAY tablet 11/30/15 03/30/16 Rx Metoprolol [Lopressor TAB] 50 mg PO DAILY #30 tablet 11/30/15 03/30/16 Rx Pantoprazole [Protonix TAB] 40 mg PO QDAY #30 tablet 11/30/15 03/30/16 Rx PE/Shark Liver/Ccb [Hemorrhoidal 1 each [place] Q6H PRN #1 supp.rect 06/16/19 Unknown Rx 0.25/3/85.5%] cephALEXin [Keflex] 500 mg PO Q8HR #9 cap 06/16/19 Unknown Rx polyethylene glycoL 3350 [Miralax 17 gm PO BID #60 powd.pack 06/16/19 Unknown Rx 3350] Allergies Allergy/AdvReac Type Severity Reaction Status Date / Time No Known Allergies Allergy Verified 04/07/15 18:20 ED Review of Systems ROS: Stated complaint: BED SORES Other details as noted in HPI Comment: All other systems reviewed and negative ED Past Medical Hx - Past Medical History Hx Hypertension: Yes Hx CVA: Yes (pt had stroke 20 years ago) Hx Diabetes: No Hx Pulmonary Embolism: No Hx Liver Disease: (Abnormal LFTs) Hx Sickle Cell Disease: No Hx Arthritis: Yes Hx Asthma: No Hx COPD: No Hx Tuberculosis: Yes Hx Dementia: Yes Hx HIV: No Additional medical history: GOUT. ALZHEIMERS/dementia - Surgical History Hx Pacemaker: Yes Additional Surgical History: G Tube - Social History Smoking Status: Unknown if ever smoked - Medications Home Medications: Home Medications Medication Instructions Recorded Confirmed Last Taken Type Simvastatin 20 mg PO QHS 01/18/15 06/16/19 03/30/16 History Clopidogrel [Plavix] 75 mg PO QDAY tablet 11/30/15 06/16/19 03/30/16 Rx Metoprolol [Lopressor TAB] 50 mg PO DAILY #30 tablet 11/30/15 06/16/19 03/30/16 Rx Pantoprazole [Protonix TAB] 40 mg PO QDAY #30 tablet 11/30/15 06/16/19 03/30/16 Rx oxyCODONE /ACETAMINOPHEN 5 - 325 mg PO Q6H PRN 11/10/16 06/16/19 Unknown History PE/Shark Liver/Ccb [Hemorrhoidal 1 each [place] Q6H PRN #1 supp.rect 06/16/19 Unknown Rx 0.25/3/85.5%] cephALEXin [Keflex] 500 mg PO Q8HR #9 cap 06/16/19 Unknown Rx polyethylene glycoL 3350 [Miralax 17 gm PO BID #60 powd.pack 06/16/19 Unknown Rx 3350] ED Physical Exam - General Limitations: Language Barrier, Altered Mental Status, Physical Limitation - Head Head exam: Present: atraumatic, normocephalic - Eye Eye exam: Present: normal appearance - ENT ENT exam: Present: mucous membranes dry - Neck Neck exam: Present: normal inspection - Respiratory Respiratory exam: Present: normal lung sounds bilaterally. Absent: respiratory distress, wheezes, rales, rhonchi - Cardiovascular Cardiovascular Exam: Present: regular rate, normal rhythm. Absent: systolic murmur, diastolic murmur, rubs, gallop - GI/Abdominal GI/Abdominal exam: Present: soft, normal bowel sounds. Absent: distended, tenderness, guarding, rebound - Rectal Rectal exam: Present: deferred - Extremities Exam Extremities exam: Present: normal inspection - Expanded Lower Extremity Exam Right Hip exam: Present: swelling, erythema 1 - Patient with a large baseball sized decubitus ulcer which is stage IV. There is a great deal of purulent drainage from the wound which does track deep. The purulent drainage has a foul odor. There is some some surrounding erythema. - Back Exam Back exam: Present: normal inspection - Neurological Exam Neurological exam: Present: alert, altered - Psychiatric Psychiatric exam: Present: normal affect, normal mood - Skin Skin exam: Present: warm, dry, intact, normal color. Absent: rash ED Course Vital Signs 03/23/20 03/23/20 03/23/20 17:10 17:16 17:22 Temperature 97.8 F Pulse Rate 77 68 Respiratory 13 15 Rate Blood Pressure 119/58 Blood Pressure 119/58 [Left] O2 Sat by Pulse 100 99 100 Oximetry 03/23/20 17:23 Temperature Pulse Rate Respiratory Rate Blood Pressure Blood Pressure [Left] O2 Sat by Pulse 100 Oximetry ED Medical Decision Making - Lab Data Result diagrams: 03/23/20 17:07 03/23/20 17:07 Lab Results 03/23/20 03/23/20 03/23/20 Range/Units 17:07 17:07 17:07 WBC 12.5 H (4.5-11.0) K/mm3 RBC 2.78 L (3.65-5.03) M/mm3 Hgb 8.1 L (11.8-15.2) gm/dl Hct 24.1 L (35.5-45.6) % MCV 87 (84-94) fl MCH 29 (28-32) pg MCHC 34 (32-34) % RDW 13.9 (13.2-15.2) % Plt Count 418 (140-440) K/mm3 Lymph % (Auto) 6.3 L (13.4-35.0) % Hill % (Auto) 6.1 (0.0-7.3) % Eos % (Auto) 0.0 (0.0-4.3) % Baso % (Auto) 0.4 (0.0-1.8) % Lymph # 0.8 L (1.2-5.4) K/mm3 Hill # 0.8 (0.0-0.8) K/mm3 Eos # 0.0 (0.0-0.4) K/mm3 Baso # 0.0 (0.0-0.1) K/mm3 Seg Neutrophils % 87.2 H (40.0-70.0) % Seg Neutrophils # 10.9 H (1.8-7.7) K/mm3 Sodium 121 L (137-145) mmol/L Potassium 5.4 H (3.6-5.0) mmol/L Chloride 81.0 L (98-107) mmol/L Carbon Dioxide 25 (22-30) mmol/L Anion Gap 20 mmol/L BUN 17 (9-20) mg/dL Creatinine 0.5 L (0.8-1.3) mg/dL Estimated GFR > 60 ml/min BUN/Creatinine Ratio 34 % Glucose 107 H (75-100) mg/dL Lactic Acid 3.00 H* (0.7-2.0) mmol/L Calcium 9.1 (8.4-10.2) mg/dL Total Bilirubin 0.50 (0.1-1.2) mg/dL AST 14 (5-40) units/L ALT 8 (7-56) units/L Alkaline Phosphatase 114 (35-129) units/L Total Protein 6.4 (6.3-8.2) g/dL Albumin 2.7 L (3.9-5) g/dL Albumin/Globulin Ratio 0.7 % - Medical Decision Making Patient with a significant infected decubitus ulcer on the right hip. Patient also showing evidence of severe dehydration and hyponatremia. Patient was given IV hydration here in emergency department. Started on vancomycin. Patient will be admitted to the hospitalist service. Critical care attestation.: If time is entered above; I have spent that time in minutes in the direct care of this critically ill patient, excluding procedure time. ED Disposition Clinical Impression: Decubitus ulcer, stage 4 with infection, Severe dehydration, Acute hyponatremia Disposition: OP ADMIT IP TO THIS HOSP Is pt being admited?: Yes Does the pt Need Aspirin: No Condition: Stable
[2020-03-23 17:21] LABS: Basophils % (Auto) 0.4 % (0.0-1.8); Hematocrit 24.1 % (35.5-45.6); Hemoglobin 8.1 gm/dl (11.8-15.2); Lymphocytes # (Auto) 0.8 K/mm3 (1.2-5.4); Lymphocytes % (Auto) 6.3 % (13.4-35.0); Mean Corpuscular HGB Conc 34 % (32-34); Mean Corpuscular Volume 87 fl (84-94); Monocytes # (Auto) 0.8 K/mm3 (0.0-0.8); Monocytes % (Auto) 6.1 % (0.0-7.3); Platelet Count 418 K/mm3 (140-440); Red Blood Count 2.78 M/mm3 (3.65-5.03); Red Cell Distribution Width 13.9 % (13.2-15.2)
[2020-03-23 17:24] VITALS: BP 119/58
[2020-03-23 17:51] LABS: Alanine Aminotransferase 8 units/L (7-56); Albumin 2.7 g/dL (3.9-5); BUN/Creatinine Ratio 34; Blood Urea Nitrogen 17 mg/dL (9-20); Calcium 9.1 mg/dL (8.4-10.2); Hemolysis Index 21
--- NOTE | 2020-03-23 19:59 | History and Physical Report ---
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 Pt is currently bedbound, nonambulatory, requires 6/6 assistance with all activities of daily living, stage IV right hip ulcer presents to ED for evaluation. Patient is nonverbal and not able to provide history at the time of my evaluation. Patient history is provided by the patient's and daughter. As per family the patient was found to have purulent drainage from his right hip wound. As per caregiver recommendationsEMS was notified and upon arrival the patient was evaluated and transported to [facility] for further evaluation and care. Patient seen and evaluated in the emergency department. Lab and imaging studies reviewed. Patient found to have chronic right hip ulcer complicated by cellulitis. Patient and family notified regarding findings. Advanced care planning conducted in ED. Patient elects to have patient admitted to home hospice care. Patient subsequently discharged home with oral antibiotic therapy and home hospice referral. Patient acknowledges understanding and agreement with care plan. Past History Past Medical History: atrial fib, hypertension, stroke, other (See HPI) Past Surgical History: Other (G-tube placement) Social history: , lives with family ( and) Family history: hypertension Medications and Allergies Allergies Allergy/AdvReac Type Severity Reaction Status Date / Time No Known Allergies Allergy Verified 04/07/15 18:20 Home Medications Medication Instructions Recorded Confirmed Last Taken Type Simvastatin 20 mg PO QHS 01/18/15 06/16/19 03/30/16 History Clopidogrel [Plavix] 75 mg PO QDAY tablet 11/30/15 06/16/19 03/30/16 Rx Metoprolol [Lopressor TAB] 50 mg PO DAILY #30 tablet 11/30/15 06/16/19 03/30/16 Rx Pantoprazole [Protonix TAB] 40 mg PO QDAY #30 tablet 11/30/15 06/16/19 03/30/16 Rx oxyCODONE /ACETAMINOPHEN 5 - 325 mg PO Q6H PRN 11/10/16 06/16/19 Unknown History PE/Shark Liver/Ccb [Hemorrhoidal 1 each [place] Q6H PRN #1 supp.rect 06/16/19 Unknown Rx 0.25/3/85.5%] cephALEXin [Keflex] 500 mg PO Q8HR #9 cap 06/16/19 Unknown Rx polyethylene glycoL 3350 [Miralax 17 gm PO BID #60 powd.pack 06/16/19 Unknown Rx 3350] Review of Systems ROS unobtainable: due to mental status Exam - Constitutional Vitals: Temp Pulse Resp BP Pulse Ox 97.8 F 68 15 119/58 100 03/23/20 17:22 03/23/20 17:22 03/23/20 17:22 03/23/20 17:22 03/23/20 17:23 General appearance: Present: mild distress - EENT Eyes: Present: PERRL ENT: hearing decreased - Neck Neck: Present: supple - Respiratory Respiratory effort: normal Respiratory: bilateral: diminished - Cardiovascular Rhythm: regular - Extremities Extremities: no ischemia Extremity abnormal: other (Bilateral upper extremity contracture bilateral lower extremity contracture) Peripheral Pulses: within normal limits - Abdominal General gastrointestinal: Present: soft, non-tender, non-distended, normal bowel sounds, other (PEG tube in place) Male genitourinary: Present: normal - Integumentary Integumentary: Present: clear, dry, decreased turgor (Right hip stage IV ulcer) - Musculoskeletal Musculoskeletal: generalized weakness - Psychiatric Psychiatric: no appropriate mood/affect, no intact judgment & insight, no memory intact - Neurologic Neurologic: no CNII-XII intact, focal deficits, no moves all extremities, no gait normal Results - Labs CBC & Chem 7: 03/23/20 17:07 03/23/20 17:07 Labs: Abnormal lab results 03/23/20 03/23/20 03/23/20 Range/Units 17:07 17:07 17:07 WBC 12.5 H (4.5-11.0) K/mm3 RBC 2.78 L (3.65-5.03) M/mm3 Hgb 8.1 L (11.8-15.2) gm/dl Hct 24.1 L (35.5-45.6) % Lymph % (Auto) 6.3 L (13.4-35.0) % Lymph # 0.8 L (1.2-5.4) K/mm3 Seg Neutrophils % 87.2 H (40.0-70.0) % Seg Neutrophils # 10.9 H (1.8-7.7) K/mm3 Sodium 121 L (137-145) mmol/L Potassium 5.4 H (3.6-5.0) mmol/L Chloride 81.0 L (98-107) mmol/L Creatinine 0.5 L (0.8-1.3) mg/dL Glucose 107 H (75-100) mg/dL Lactic Acid 3.00 H* (0.7-2.0) mmol/L Albumin 2.7 L (3.9-5) g/dL Assessment and Plan - Patient Problems (1) CVA, old, dysphagia Current Visit: Yes Status: Acute Plan to address problem: Supportive care, request home hospice services. Home hospice ordered. Patient discharged home with hospice care under care of the medical education coordinator. (2) Decubitus ulcer, stage 4 with infection Current Visit: Yes Status: Acute Plan to address problem: Wound care, supportive care, oral antibiotic therapy, request hospice care. (3) Atrial fibrillation Current Visit: No Status: Chronic Plan to address problem: Supportive care, patient request hospice service. (4) Dementia in Alzheimer's disease Onset Date: 04/16/15 Current Visit: No Status: Chronic Plan to address problem: Supportive care, fast score of 7E. Patient request hospice service. (5) Advance care planning Current Visit: Yes Status: Acute Plan to address problem: Disease education conducted, patient prognosis discussed. Patient and daughter acknowledge understanding and agreement with care plan. Patient elects to initiate hospice care at home. +30 minutes.
[2020-03-23] MEDS ORDERED: SODIUM CHLORIDE 0.9% 1000 ML 1,000 ML ONE (20:38)
== END 2020-03-24 01:27 | disposition home or self-care (01) ==
LOC: ED 15:52
DX: L89.214 Pressure ulcer of right hip, stage 4 (principal); E86.0 Dehydration; E87.1 Hypo-osmolality and hyponatremia; I10 Essential (primary) hypertension; M19.91 Primary osteoarthritis, unspecified site; F03.90 Unspecified dementia, unspecified severity, without behavioral disturbance, psychotic disturbance, mood disturbance, and anxiety; Z86.11 Personal history of tuberculosis; Z86.73 Personal history of transient ischemic attack (TIA), and cerebral infarction without residual deficits; Z98.890 Other specified postprocedural states; Z79.899 Other long term (current) drug therapy
CPT/HCPCS: 36415; 80053; 82140; 85025; 87040; 96361; 96365; 99284; J3370; J7030; J7050; J7040

== ENCOUNTER 2020-03-26 18:05 | Emergency (ER) | payer MEDICARE ==
--- NOTE | 2020-03-26 18:28 | Emergency Department Report ---
ED General Adult HPI - General Chief complaint: Tube Replacement Stated complaint: FEEDING TUBE DISLODGED PUI?: No Time Seen by Provider: 03/26/20 18:17 Source: EMS, old records reviewed Mode of arrival: Stretcher Limitations: Other - History of Present Illness Initial comments: This is an 84-year-old male who presents with dislodged feeding tube. Patient has history of dementia Alzheimer's, hypertension, atrial fibrillation, CVA decubitus ulcer. I am unable to obtain history from patient due to severe dementia. He presents via EMS. At the bedside, there is a 14 Finnish feeding tube. -: unknown Improves with: none Worsens with: none Associated Symptoms: other (No other substance according to EMS report) Treatments Prior to Arrival: none - Related Data Home Medications Medication Instructions Recorded Confirmed Last Taken Simvastatin 20 mg PO QHS 01/18/15 06/16/19 03/30/16 oxyCODONE /ACETAMINOPHEN 5 - 325 mg PO Q6H PRN 11/10/16 06/16/19 Unknown Previous Rx's Medication Instructions Recorded Last Taken Type Clopidogrel [Plavix] 75 mg PO QDAY tablet 11/30/15 03/30/16 Rx Metoprolol [Lopressor TAB] 50 mg PO DAILY #30 tablet 11/30/15 03/30/16 Rx Pantoprazole [Protonix TAB] 40 mg PO QDAY #30 tablet 11/30/15 03/30/16 Rx PE/Shark Liver/Ccb [Hemorrhoidal 1 each [place] Q6H PRN #1 supp.rect 06/16/19 Unknown Rx 0.25/3/85.5%] cephALEXin [Keflex] 500 mg PO Q8HR #9 cap 06/16/19 Unknown Rx polyethylene glycoL 3350 [Miralax 17 gm PO BID #60 powd.pack 06/16/19 Unknown Rx 3350] Clindamycin [Clindamycin CAP] 300 mg PO Q8H #21 cap 03/23/20 Unknown Rx LORazepam [Ativan] 1 mg PO BID #30 tab 03/23/20 Unknown Rx Morphine Concentrate [MORPHINE 10 mg PO Q4HR PRN 15 Days #30 ml 03/23/20 Unknown Rx Conc 20 MG/ML ORAL LIQ] Allergies Allergy/AdvReac Type Severity Reaction Status Date / Time No Known Allergies Allergy Verified 04/07/15 18:20 ED Review of Systems ROS: Stated complaint: FEEDING TUBE DISLODGED Other details as noted in HPI Comment: Unobtainable due to pts medical conditions (Severe dementia) ED Past Medical Hx - Past Medical History Previous Medical History?: Yes Hx Hypertension: Yes Hx CVA: Yes (pt had stroke 20 years ago) Hx Diabetes: No Hx Pulmonary Embolism: No Hx Liver Disease: (Abnormal LFTs) Hx Sickle Cell Disease: No Hx Arthritis: Yes Hx Asthma: No Hx COPD: No Hx Tuberculosis: Yes Hx Dementia: Yes Hx HIV: No Additional medical history: GOUT. ALZHEIMERS/dementia - Surgical History Past Surgical History?: Yes Hx Pacemaker: Yes Additional Surgical History: G Tube - Social History Smoking Status: Unknown if ever smoked - Medications Home Medications: Home Medications Medication Instructions Recorded Confirmed Last Taken Type Simvastatin 20 mg PO QHS 01/18/15 06/16/19 03/30/16 History Clopidogrel [Plavix] 75 mg PO QDAY tablet 11/30/15 06/16/19 03/30/16 Rx Metoprolol [Lopressor TAB] 50 mg PO DAILY #30 tablet 11/30/15 06/16/19 03/30/16 Rx Pantoprazole [Protonix TAB] 40 mg PO QDAY #30 tablet 11/30/15 06/16/19 03/30/16 Rx oxyCODONE /ACETAMINOPHEN 5 - 325 mg PO Q6H PRN 11/10/16 06/16/19 Unknown History PE/Shark Liver/Ccb [Hemorrhoidal 1 each [place] Q6H PRN #1 supp.rect 06/16/19 Unknown Rx 0.25/3/85.5%] cephALEXin [Keflex] 500 mg PO Q8HR #9 cap 06/16/19 Unknown Rx polyethylene glycoL 3350 [Miralax 17 gm PO BID #60 powd.pack 06/16/19 Unknown Rx 3350] Clindamycin [Clindamycin CAP] 300 mg PO Q8H #21 cap 03/23/20 Unknown Rx LORazepam [Ativan] 1 mg PO BID #30 tab 03/23/20 Unknown Rx Morphine Concentrate [MORPHINE 10 mg PO Q4HR PRN 15 Days #30 ml 03/23/20 Unknown Rx Conc 20 MG/ML ORAL LIQ] ED Physical Exam - General Limitations: Other General appearance: alert, in no apparent distress, cachectic, other (Flexed upper and lower extremities, appears chronically ill, poor eye contact) - Head Head exam: Present: atraumatic, normocephalic - Eye Eye exam: Present: normal appearance, PERRL. Absent: scleral icterus - ENT ENT exam: Present: mucous membranes moist - Neck Neck exam: Present: normal inspection, full ROM - Respiratory Respiratory exam: Present: normal lung sounds bilaterally. Absent: respiratory distress, wheezes, rales - Cardiovascular Cardiovascular Exam: Present: regular rate, normal rhythm, normal heart sounds - GI/Abdominal GI/Abdominal exam: Present: soft, other (Gastrostomy site mild surrounding erythema without purulence). Absent: distended, tenderness - Extremities Exam Extremities exam: Present: other (Flexed upper and lower extremities) - Neurological Exam Neurological exam: Present: alert, other (Nonverbal) - Psychiatric Psychiatric exam: Present: flat affect - Skin Skin exam: Present: warm - Feeding Tube Replacement Reason for Replacement: fell out Initial Tube Inserted: greater than 4 weeks Type of Tube: gastrostomy Use of Tube: medications and feeding Insertion Site Prior to Procedure: erythematous Tube Used for Reinsertion: other (14F gastrostomy tube) Finnish Tube Size (F): 14 Balloon Size (mls): 5 Verification of Placement: KUB, gastrograffin injection Tube Secured by: tape/dressing Patient Tolerated Procedure: well ED Medical Decision Making - Radiology Data Radiology results: report reviewed Gastrostomy tube check confirms appropriate placement according to my interpretation and radiology interpretation - Medical Decision Making Gastrostomy tube replacement successful and confirmed via radiography patient is discharged in stable condition Critical care attestation.: If time is entered above; I have spent that time in minutes in the direct care of this critically ill patient, excluding procedure time. ED Disposition Clinical Impression: Dislodged gastrostomy tube Disposition: DC-01 TO HOME OR SELFCARE Is pt being admited?: No Does the pt Need Aspirin: No Condition: Stable
--- NOTE | 2020-03-26 19:58 | XRay Report ---
ABDOMEN 2 VIEWS INDICATION / CLINICAL INFORMATION: gastrostomy tube replacement. COMPARISON: 11/01/19 FINDINGS: TUBES / LINES: Gastrostomy tube projects over the mid stomach. 30 mL of Gastroview and 30 mL water we re injected through the tube. Contrast outlines the stomach and duodenum. No extraluminal contrast. BOWEL GAS PATTERN: No significant abnormality. FREE AIR / EXTRALUMINAL GAS: None seen. ADDITIONAL FINDINGS: No significant additional findings. CHEST: Visualized chest shows no significant abnormality. IMPRESSION: 1. Gastrostomy tube in the stomach. Signer Name: Xochitl Arellano MD Signed: 03/26/2020 7:54 PM Workstation Name: [id number]
[2020-03-26 21:13] VITALS: BP 116/72
== END 2020-03-26 21:29 | disposition home or self-care (01) ==
LOC: ED 18:05
DX: K94.23 Gastrostomy malfunction (principal); I10 Essential (primary) hypertension; M13.88 Other specified arthritis, other site; G30.8 Other Alzheimer's disease; F02.80 Dementia in other diseases classified elsewhere, unspecified severity, without behavioral disturbance, psychotic disturbance, mood disturbance, and anxiety; Z79.899 Other long term (current) drug therapy
CPT/HCPCS: 43762; 74018; 93005; 99283; Q9963; 99282